=== PATIENT | female | born 1935 | race Caucasian/White ===

== ENCOUNTER 2018-09-27 20:30 | Inpatient (IN) | payer OTHER ==
[~2018-09-27] VITALS: Ht 172.7 cm; Wt 99.8 kg
[~2018-09-27 20:30] MED LIST: ASPI-1093 PO; CARV3.12 PO; CYAN1TAB9 PO; DILT60TA55 PO; DOCU-299 PO; FURO-572 PO; GABA300C PO; INSU100S45 SUBQ; LANS30EC3 PO; LANTUS SUBQ; MAGN400T11 PO; MULT-877 PO; OMEG10006 PO; SIMV40TA1 PO; SPIR25TA PO; TAP5 PO; VENL150C1 PO; [UNRECOGNIZED DRUG - CODE] PO
[2018-09-27 20:35] VITALS: BP 92/44
[2018-09-27] MEDS ORDERED: ZIPRASIDONE MESYLATE 20 MG/ML VIAL IM ONE (20:40)
--- NOTE | 2018-09-27 20:44 | NUR ---
PATIENT BIB AMBULANCE TO ED WITH ALOC. PT AAOX0, NON-COOPERATIVE, AND COMBATIVE; SKIN IS PINK/WARM/DRY; PT DOES NOT PRESENT WITH FEVER,SOB,OR COUGH AT THIS TIME; VSS; PATIENT IS IN RESTRAINTS; BEDRAILS UP X2; BED DOWN. ER MD MADE AWARE OF PT STATUS. CONTINUE TO MONITOR
[2018-09-27] MEDS ORDERED: WATER STERILE 10 ML MC ONE (20:52)
--- NOTE | 2018-09-27 20:52 | NUR ---
MEDICATION GIVEN, RESTRAINTS REMOVED.
[2018-09-27] MEDS ORDERED: LEVOFLOXACIN 500 MG/D5W PREMIX 100 ML IV ONE (21:10)
[2018-09-27] MEDS ORDERED: NACL 0.9% 1,000 ML IV ONE (21:10)
[2018-09-27 21:38] LABS: BASOPHILS % (AUTO) 0.6 % (0.0-2.0); EOSINOPHILS # (AUTO) 0.5 K/uL (0-0.4); EOSINOPHILS % (AUTO) 6.5 % (0.0-4.0); HEMATOCRIT 37.8 % (36-48); HEMOGLOBIN 12.5 g/dL (12.0-16.0); LYMPHOCYTES # (AUTO) 1.5 K/uL (2.5-16.5); LYMPHOCYTES % (AUTO) 20.7 % (20.5-51.1); MEAN CORPUSCULAR HEMOGLOBIN 30 pg (27-31); MEAN CORPUSCULAR HGB CONC 33 g/dL (33-37); MEAN CORPUSCULAR VOLUME 89.1 fL (80-94); MONOCYTES # (AUTO) 0.7 K/uL (0.8-1.0); MONOCYTES % (AUTO) 9.1 % (1.7-9.3); NEUTROPHILS # (AUTO) 4.7 K/uL (1.8-7.7); NEUTROPHILS % (AUTO) 63.1 % (42.2-75.2); PLATELET COUNT (AUTO) 173 K/uL (140-450); RED BLOOD CELL COUNT(AUTO) 4.25 MIL/uL (4.20-5.40); RED CELL DISTRIBUTION WIDTH 13.4 % (11.6-13.7); WHITE BLOOD COUNT (AUTO) 7.4 K/uL (4.8-10.8)
[2018-09-27 21:58] LABS: APPEARANCE,URINE CLOUDY (CLEAR); BILIRUBIN,URINE NEGATIVE (NEGATIVE); BLOOD, URINE TRACE-I (NEGATIVE); COLOR,URINE YELLOW (YELLOW); LEUKOCYTE ESTERASE ,URINE 4+ (NEGATIVE); NITRITE, URINE POSITIVE (NEGATIVE); PH,URINE 7.5 (5.0-9.0); UGLUCOSE NEGATIVE (NEGATIVE)
[2018-09-27 22:01] LABS: RBC,URINE NONE SEEN /HPF (0-5); WBC,URINE 80-100 /HPF (0-5)
[2018-09-27] MEDS ORDERED: HALOPERIDOL IM 5 MG/ML VIAL IM ONE (22:05)
[2018-09-27 22:06] LABS: PROTHROMBIN TIME 10.4 secs (10.8-13.4)
[2018-09-27 22:07] LABS: ALBUMIN 3.2 g/dL (3.4-5.0); ASPARTATE AMINOTRANSFERASE 17 U/L (15-37); CARBON DIOXIDE 28.9 mmol/L (21-32); CHLORIDE 101 mmol/L (98-107); CREATININE 1.3 mg/dL (0.6-1.3); GLUCOSE 153 mg/dL (74-106); POTASSIUM 3.9 mmol/L (3.5-5.1); SODIUM SERUM 138 mmol/L (136-145); TOTAL BILIRUBIN 0.6 mg/dL (0.0-1.0); UREA NITROGEN, BLOOD 26 mg/dL (7-18)
[2018-09-27] MEDS ORDERED: LOSA50TA1 PO (22:59)
[2018-09-27] MEDS ORDERED: CRAN450C PO (22:59)
[2018-09-27] MEDS ORDERED: MONT10TA35 PO (22:59)
[2018-09-27] MEDS ORDERED: ACET-5629 PO (22:59)
[2018-09-27] MEDS ORDERED: QUET25TA PO (22:59)
[2018-09-27] MEDS ORDERED: PANT40EC PO (22:59)
[2018-09-27] MEDS ORDERED: DIVA125E1 (22:59)
[2018-09-27] MEDS ORDERED: ATRN INH (22:59)
--- NOTE | 2018-09-27 23:11 | NUR ---
EKG PERFORMED AT BEDSIDE. PT COVERED IN GOWN DURING PROCEDURE
--- NOTE | 2018-09-28 00:11 | NUR ---
Patient will be admitted to care of DR YAN. Admited to TELE. Will go to room 110A. Belongings list completed. Report to ASA HELMS.
[2018-09-28 00:45] VITALS: BP 103/79
--- NOTE | 2018-09-28 01:10 | NUR ---
DR. OLIVAREZ CALLED TO GIVE ORDERS OVER PHONE. REPEATED ORDERS AND DR OLIVAREZ SAID "OK I WILL ADD THE REST TOMORROW IF YOU NEED SOMETHING ELSE GO AHEAD AND CALL ME." TOLD DR OLIVAREZ ABOUT POLST-PT DNR, AND HE SAID TO PUT IN CODE DNR. PUT IN ALL THE ORDERS HE GAVE IN THE SYSTEM.
[2018-09-28] MEDS: NACL 0.45% 1,000 ML IV SCH ×3 (02:00→15:56)
--- NOTE | 2018-09-28 02:00 | NUR ---
PT REFUSED TO BE CONNECTED TO IVF.
--- NOTE | 2018-09-28 04:00 | NUR ---
PT REFUSES TO LET ME CHECK HER VITAL SIGNS, PT STATES NO ONE WILL TOUCH HER. NO SIGNS OF DISTRESS NOTED. BED RAILS UP X2, BED IN LOWEST POSITION. CALL LIGHT WITHIN REACH. WILL CONTINUE TO MONITOR.
--- NOTE | 2018-09-28 06:13 | NUR ---
PT REFUSES TO CHECK BLOOD SUGAR. EDUCATED HER ABOUT THE IMPORTANCE OF CHECKING BLOOD SUGAR AND PT STARTED YELLING "I TOLD YOU! DON'T TOUCH ME! I'M NOT LETTING ANYONE TOUCH ME! DON'T YOU DARE TOUCH ME."
--- NOTE | 2018-09-28 07:15 | NUR ---
RECEIVED PT REPORT AT BEDSIDE FROM NIGHT NURSE. PT IS ASLEEP AT THIS TIME. NO S/S OF ACUTE DISTRESS, NO SOB NOTED. PT IS ON ROOM AIR. IV SITE NOTED ON R HAND, 22 GAUGE. SKIN APPEARS INTACT. CALL LIGHT WITHIN REACH, BED LOW. CONTACT PRECAUTIONS IN PLACE FOR ESBL URINE. WILL CONTINUE TO MONITOR.
[2018-09-28] MEDS: BLOOD GLUCOSE MONITORING 1 DEV DEV FS SCH ×4 (07:30→21:00)
--- NOTE | 2018-09-28 07:30 | NUR ---
ENDORSED PT TO DAY SHIFT RN FRANKIE FOR CONTINUITY OF CARE. PT IN STABLE CONDITION.
--- NOTE | 2018-09-28 07:55 | NUR ---
PT IS REFUSING TO HAVE VITAL SIGNS TAKEN OR TO BE CONNECTED TO HER IV FLUID. TRIED CONVINCING HER TO TAKE VITAL SIGNS TWICE, SHE REFUSED BOTH TIMES. SHE TOOK THE BLOOD PRESSURE CUFF THAT WAS NEXT TO HER, AND USED IT TO HIT THE RN. PT IS COMBATIVE AND NON-COMPLIANT WITH ASSESSMENT AND CARE. BED IS IN LOW POSITION, CALL LIGHT WITHIN REACH. WILL CONTINUE TO MONITOR.
--- NOTE | 2018-09-28 08:00 | NUR ---
PT REFUSED BLOOD SUGAR CHECK. PT IS AWARE THAT SHE IS DIABETIC AND NEEDS A BLOOD SUGAR CHECK, BUT STILL REFUSED.
--- NOTE | 2018-09-28 08:41 | NUR ---
PATIENT HAS BEEN SCREENED AND CATEGORIZED MODERATE NUTRITION RISK. PATIENT WILL BE SEEN WITHIN 3-5 DAYS OF ADMISSION. 09/30/18 10/02/[address]
[2018-09-28] MEDS: DOCUSATE SODIUM 100 MG GELCAP PO SCH ×2 (09:00→15:54)
[2018-09-28] MEDS: SPIRONOLACTONE 25 MG TAB PO SCH ×2 (09:00→15:54)
[2018-09-28] MEDS: QUEtiapine FUMARATE 25 MG TAB PO SCH ×2 (09:00→15:55)
[2018-09-28] MEDS: CARVEDILOL 3.125 MG TAB PO SCH ×2 (09:00→15:53)
[2018-09-28] MEDS: MONTELUKAST SODIUM 10 MG TAB PO SCH ×2 (09:00→15:55)
[2018-09-28] MEDS: LOSARTAN 50 MG TAB PO SCH (09:00)
[2018-09-28] MEDS: DILTIAZEM 60 MG TAB PO SCH ×2 (09:00→17:00)
[2018-09-28] MEDS: ECOTRIN 81 MG TABEC PO SCH ×2 (09:00→15:54)
[2018-09-28] MEDS: DIVALPROEX SPRINKLES 125 MG CAPDR PO SCH ×3 (09:00→15:52)
--- NOTE | 2018-09-28 09:30 | NUR ---
PT IS REFUSING HER SCHEDULED AM MEDICATIONS. STATES: "DON'T ASK ME AGAIN, IT WILL BE YOUR FAULT." SHE ALSO KEEPS REFUSING VITAL SIGNS AND BLOOD SUGAR CHECK. PT HAS NOT EATEN HER BREAKFAST. CALL LIGHT WITHIN REACH, WILL CONTINUE TO MONITOR.
--- NOTE | 2018-09-28 11:07 | NUR ---
PT IS VERBALLY INAPPROPRIATE, YELLING OUT, TELLING RN TO "GET OUT OF HERE". REFUSING A BLOOD SUGAR CHECK. WILL CONTINUE TO MONITOR.
--- NOTE | 2018-09-28 12:02 | NUR ---
PT REFUSES SCHEDULED 12:00 VITAL SIGN CHECK. TELLS THE RN TO "GET OUT". PT CONTINUES TO BE COMBATIVE AND NON-COMPLIANT WITH CARE. MD IS AWARE.
[2018-09-28] MEDS: GABAPENTIN 300 MG CAP PO SCH ×2 (13:00→15:53)
--- NOTE | 2018-09-28 13:20 | NUR ---
PT REFUSED HER SCHEDULED 13:00 DEPAKOTE AND NEURONTIN. STATES SHE'S "NEVER TAKEN THESE DRUGS", AND DOESN'T WANT TO TAKE THEM. SHE ALSO AGAIN REFUSED A VITAL SIGN CHECK AND A BLOOD SUGAR CHECK, STATES "I DON'T WANT ANYONE TO TOUCH ME." PT NOT C/O PAIN, NO SOB. OFFERED TO SIT PT UP AND HELP HER EAT LUNCH, SHE REFUSED, STATES THAT SHE "DOESN'T FEEL SAFE SITTING UP". PT CONTINUES TO VERBALLY INSULT STAFF. MD IS AWARE OF PT'S NON-COMPLIANCE WITH CARE.
[2018-09-28] MEDS ORDERED: ACETAMINOPHEN 650 MG/20.3 ML UDC PO PRN (14:55)
--- NOTE | 2018-09-28 15:00 | NUR ---
PT CLEANED AND SHEETS CHANGED. PT C/O BACK PAIN 08/10 WHILE BEING CHANGED. MD AWARE.
[2018-09-28] MEDS: HYDROcodone/APAP 5/325 MG 1 TAB TAB PO PRN ×2 (15:22→21:41)
--- NOTE | 2018-09-28 15:24 | NUR ---
PT ALLOWED RN TO TAKE VITAL SIGNS AT THIS TIME. VITAL SIGNS STABLE. BP 108/70, HR 65, O2 98 RA, TEMP 97.8, RESP 18. PT ON ROOM AIR.
[2018-09-28 16:00] VITALS: BP 108/70
--- NOTE | 2018-09-28 16:00 | NUR ---
PT AGREED TO TAKE THE SCHEDULED MEDICATIONS SHE REFUSED IN THE MORNING. SHE ALSO ALLOWED RN TO CHECK VITAL SIGNS AND BLOOD GLUCOSE. VS STABLE: BP 108/70, HR 65, TEMP 97.8, O2 98 ON ROOM AIR, RR 18. BLOOD GLUCOSE 105.
--- NOTE | 2018-09-28 17:02 | NUR ---
PT HAD A FEW SECONDS OF V.TACH ON TELEMETRY. DR ROSALES IS AWARE, AND SAID OK TO GIVE THE SCHEDULED ORAL CARDIZEM THAT THE PT REFUSED THIS MORNING. PT TOOK THE MEDICATION. WILL CONTINUE TO MONITOR PT.
--- NOTE | 2018-09-28 19:20 | NUR ---
PT REPORT GIVEN AT BEDSIDE TO NIGHT NURSE. PT ENDORSED IN STABLE CONDITION.
--- NOTE | 2018-09-28 19:21 | NUR ---
RECEIVED BEDSIDE REPORT FROM DAY SHIFT NURSE FRANKIE RN, PT STABLE, NO DISTRESS NOTED, IV TO R HAND 22G PATENT, INTACT, INFUSING 1/2 NS @ 80ML/HR, INFUSING WELL, PT ON ROOM AIR, NO SOB, INITIAL ASSESSMENT DONE, ALL SAFETY PRECAUTION MET, CALL LIGHT WITHIN REACH, WILL CONTINUE TO MONITOR.
--- NOTE | 2018-09-28 20:00 | NUR ---
PT REFUSED V/S CHECK, PT STATED TO NOT TOUCH HER, NO DISTRESS NOTED, CALL LIGHT WITHIN REACH, WILL CONTINUE TO MONITOR.
--- NOTE | 2018-09-28 21:10 | NUR ---
PT REFUSED BLOOD SUGAR CHECK, STATED TO NOT TOUCH HER, PT RESTING ON BED, NO DISTRESS NOTED, CALL LIGHT WITHIN REACH, WILL CONTINUE TO MONITOR
[2018-09-28] MEDS: LEVOFLOXACIN 250 MG/D5 PREMIX 50 ML IV SCH (21:23)
--- NOTE | 2018-09-28 21:41 | NUR ---
PT STATED HAVING PAIN, PAIN MEDICATION PER MD ORDER ADMINISTERED, PT TOLERATED WELL, NO DISTRESS NOTED, CALL LIGHT WITHIN REACH, WILL CONTINUE TO MONITOR.
--- NOTE | 2018-09-28 22:38 | NUR ---
CHANGED AND REPOSITIONED PT, PT DID A LARGE BM, BROWN, SOFT, PT THEN STATED TO NURSE, "GET THE FUCK OUT!" PT RESTING, NO DISTRESS NOTED, CALL LIGHT WITHIN REACH, WILL CONTINUE TO MONITOR.
[2018-09-29] VITALS: BP 125/60
--- NOTE | 2018-09-29 00:02 | NUR ---
CHECKED ON PT, PT SLEEPING, NO DISTRESS NOTED, V/S TAKEN, WNL, CALL LIGHT WITHIN REACH, WILL CONTINUE TO MONITOR.
--- NOTE | 2018-09-29 04:00 | NUR ---
PT REFUSED V/S CHECKS, STATED TO NOT COME NEAR HER AND DON'T TOUCH HER. PT RESTING, NO DISTRESS NOTED, CALL LIGHT WITHIN REACH, WILL CONTINUE TO MONITOR.
[2018-09-29] MEDS: GABAPENTIN 300 MG CAP PO SCH ×3 (05:00→19:59)
--- NOTE | 2018-09-29 05:02 | NUR ---
PT REFUSED MEDICATION PT STATED TO NOT COME NEAR HER. PT RESTING, NO DISTRESS NOTED, CALL LIGHT WITHIN REACH, WILL CONTINUE TO MONITOR.
[2018-09-29] MEDS: BLOOD GLUCOSE MONITORING 1 DEV DEV FS SCH ×4 (05:31→19:51)
[2018-09-29] MEDS: HYDROcodone/APAP 5/325 MG 1 TAB TAB PO PRN ×4 (05:31→19:59)
--- NOTE | 2018-09-29 05:31 | NUR ---
PT STATED HAVING PAIN, NO DISTRESS NOTED, PAIN MEDICATION ORDERED ADMINISTERED, PT TOLERATED WELL, NO DISTRESS NOTED, CALL LIGHT WITHIN REACH, WILL CONTINUE TO MONITOR.
[2018-09-29] MEDS: NACL 0.45% 1,000 ML IV SCH (05:33)
--- NOTE | 2018-09-29 07:15 | NUR ---
RECEIVED BEDSIDE REPORT FROM RELEASE AND TECHNICAL RECORDS CLERK NURSE RN, PT LAYING ON HER BACK, WITH EYES STARING, NO S/S OF RESPIRATORY DISTRESS NOTED, IV TO R HAND 22G PATENT, INTACT, INFUSING 1/2 NS @ 80ML/HR, INFUSING WELL, PT ON ROOM AIR, NO SOB, INITIAL ASSESSMENT DONE, ALL SAFETY PRECAUTION MET, CALL LIGHT WITHIN REACH, WILL CONTINUE TO MONITOR.
--- NOTE | 2018-09-29 07:18 | NUR ---
ENDORSED PT TO DAY SHIFT NURSE KELLY RN, PT STABLE, NO DISTRESS NOTED, CALL LIGHT WITHIN REACH.
[2018-09-29 07:45] LABS: BASOPHILS % (AUTO) 0.6 % (0.0-2.0); EOSINOPHILS # (AUTO) 0.3 K/uL (0-0.4); EOSINOPHILS % (AUTO) 4.1 % (0.0-4.0); HEMATOCRIT 39.8 % (36-48); HEMOGLOBIN 13.1 g/dL (12.0-16.0); LYMPHOCYTES # (AUTO) 1.4 K/uL (2.5-16.5); LYMPHOCYTES % (AUTO) 17.6 % (20.5-51.1); MEAN CORPUSCULAR HEMOGLOBIN 30 pg (27-31); MEAN CORPUSCULAR HGB CONC 33 g/dL (33-37); MEAN CORPUSCULAR VOLUME 89.9 fL (80-94); MONOCYTES # (AUTO) 0.7 K/uL (0.8-1.0); MONOCYTES % (AUTO) 9.2 % (1.7-9.3); NEUTROPHILS # (AUTO) 5.5 K/uL (1.8-7.7); NEUTROPHILS % (AUTO) 68.5 % (42.2-75.2); PLATELET COUNT (AUTO) 165 K/uL (140-450); RED BLOOD CELL COUNT(AUTO) 4.43 MIL/uL (4.20-5.40); RED CELL DISTRIBUTION WIDTH 13.7 % (11.6-13.7)
[2018-09-29 07:47] LABS: ANION GAP 16.1 (8-16); ASPARTATE AMINOTRANSFERASE 23 U/L (15-37); CARBON DIOXIDE 22.8 mmol/L (21-32); CHLORIDE 102 mmol/L (98-107); GLUCOSE 99 mg/dL (74-106); POTASSIUM 3.9 mmol/L (3.5-5.1); SODIUM SERUM 137 mmol/L (136-145); TOTAL BILIRUBIN 0.8 mg/dL (0.0-1.0); UREA NITROGEN, BLOOD 20 mg/dL (7-18)
--- NOTE | 2018-09-29 07:55 | NUR ---
PT REFUSED TO HAVE SCD ON. EXPLAINED THE USE OF SCD. PT STILL REFUSING.
[2018-09-29 08:00] VITALS: BP 145/76
[2018-09-29] MEDS: SPIRONOLACTONE 25 MG TAB PO SCH (08:40)
[2018-09-29] MEDS: CARVEDILOL 3.125 MG TAB PO SCH ×2 (08:41→19:59)
[2018-09-29] MEDS: DILTIAZEM 60 MG TAB PO SCH (08:41)
[2018-09-29] MEDS: ECOTRIN 81 MG TABEC PO SCH (08:41)
[2018-09-29] MEDS: LOSARTAN 50 MG TAB PO SCH (08:41)
[2018-09-29] MEDS: DOCUSATE SODIUM 100 MG GELCAP PO SCH (08:41)
--- NOTE | 2018-09-29 08:41 | NUR ---
PT REFUSED SCHEDULED MEDICATIONS. EXPLAINED TO HER THE USE OF EACH MEDICATION ORDERED BY HER DOCTOR. PT STILL REFUSING AND SAYING SHE HAS NEVER HEARD OF THOSE MEDICATIONS. PT STATED SHE HAS THE RIGHT TO REFUSE. PT GETS AGITATED, SHOUTED GET AWAY. PT RESTING, NO DISTRESS NOTED, CALL LIGHT WITHIN REACH, WILL CONTINUE TO MONITOR.
[2018-09-29] MEDS: DIVALPROEX SPRINKLES 125 MG CAPDR PO SCH ×4 (08:42→17:00)
[2018-09-29] MEDS: MONTELUKAST SODIUM 10 MG TAB PO SCH (08:42)
[2018-09-29] MEDS: QUEtiapine FUMARATE 25 MG TAB PO SCH ×4 (08:42→17:00)
--- NOTE | 2018-09-29 10:30 | NUR ---
PT WAS CLEANED, BED LINENS CHANGED. URINEX1, BMX1. PT WAS NOT COOPERATIVE DURING THE PROCESS, USING FOUL LANGUAGES.
--- NOTE | 2018-09-29 12:35 | NUR ---
PT STILL REFUSING MEDICATIONS, ASKED MAGALY RN TO TRY, BUT STILL NO SUCCESS. PT IS AGITATED, TALKING GIBBERISH.
[2018-09-29] MEDS: HALOPERIDOL IM 5 MG/ML VIAL IM PRN ×2 (12:39→19:03)
--- NOTE | 2018-09-29 13:05 | NUR ---
SPOKE WITH LETICIA COOPER TO GIVE HALDOL IF PT NOT TAKING SEROQUEL AND CONTINUE TO BE AGITATED.
--- NOTE | 2018-09-29 13:28 | NUR ---
[employer] VIOLENCE RIR REPORT FILED. Unique Id: [id number]
--- NOTE | 2018-09-29 16:05 | NUR ---
PT PULLED OUT IV CATH. TIP INTACT, BLEEDING STOPPED.
--- NOTE | 2018-09-29 16:16 | NUR ---
PT REFUSED GLUCOSE CHECK AND VITALS. EXPLAINED TO PT THAT WHAT DR OLIVAREZ ORDERED. PT STILL SAID NO, STATING I WASN'T BORN YESTERDAY, I AM NOT DUMB.
--- NOTE | 2018-09-29 17:25 | NUR ---
PT WAS CLEANED, BED LINENS CHANGED. URINEX1, BMX1. PT WAS NOT COOPERATIVE DURING THE PROCESS, TRYING TO HIT THE CNAS.
--- NOTE | 2018-09-29 19:15 | NUR ---
ENDORSED PT TO STEAM TURBINE OPERATOR NURSE, PT IN STABLE CONDITION, NO DISTRESS NOTED.
--- NOTE | 2018-09-29 19:16 | NUR ---
RECEIVED REPORT FROM DAY SHIFT NURSE KELLY-RN AT BEDSIDE. PT AOX3-CONFUSED, AGITATED AND NON-COMPLIANT ACCORDING TO DAY SHIFT NURSE. PT RESTING IN BED. DISCUSSED PLAN OF CARE AND PT VERBALIZED UNDERSTANDING. NO S/S OF RESPIRATORY DISTRESS OR DISCOMFORT NOTED AT THIS TIME. BED IN LOWEST POSITION, BED BREAKS ON, BOTH SIDE RAILS UP AND BED ALARM ON. FALL PRECAUTIONS IN PLACE. BEDSIDE TABLE AND CALL LIGHT ARE WITHIN REACH. WILL CONTINUE TO MONITOR.
[2018-09-29 20:00] VITALS: BP 144/66
--- NOTE | 2018-09-29 20:00 | NUR ---
VITAL SIGNS TAKEN AND TOLERATED WELL. BLOOD GLUCOSE 185- WILL ADMINISTER INSULIN COVERAGE. NO S/S OF RESPIRATORY DISTRESS OR DISCOMFORT NOTED AT THIS TIME. WILL CONTINUE TO MONITOR.
[2018-09-29] MEDS: INSULIN LISPRO SLIDING SCALE 100 UNITS/ML VIAL SUBQ PRN (20:05)
--- NOTE | 2018-09-29 20:05 | NUR ---
SCHEDULED MEDICATION GIVEN AND TOLERATED WELL. PT C/O PAIN 6/10 ON RIGHT HIP- NORCO GIVEN AND TOLERATED WELL. INSULIN COVERAGE GIVEN AND TOLERATED WELL. NO S/S OF RESPIRATORY DISTRESS OR DISCOMFORT NOTED AT THIS TIME. WILL CONTINUE TO MONITOR.
--- NOTE | 2018-09-29 21:00 | NUR ---
EAN WASHINGTON ASSISTED WITH PERINEAL CARE AFTER PT HAD A SMALL BOWEL MOVEMENT. NO S/S OF RESPIRATORY DISTRESS OR DISCOMFORT NOTED AT THIS TIME. WILL CONTINUE TO MONITOR.
[2018-09-29] MEDS: LEVOFLOXACIN 250 MG/D5 PREMIX 50 ML IV SCH (21:34)
--- NOTE | 2018-09-29 21:34 | NUR ---
NEW IV SITE STARTED BY ER NURSE ON RIGHT AC #22G. PT TOLERATED WELL. SCHEDULED MEDICATION GIVEN AND TOLERATED WELL. NO S/S OF RESPIRATORY DISTRESS OR DISCOMFORT NOTED AT THIS TIME. WILL CONTINUE TO MONITOR.
--- NOTE | 2018-09-29 23:00 | NUR ---
PT RESTING IN BED. NO S/S OF RESPIRATORY DISTRESS OR DISCOMFORT NOTED AT THIS TIME. WILL CONTINUE TO MONITOR.
[2018-09-30] VITALS: BP 124/62
--- NOTE | 2018-09-30 | NUR ---
VITAL SIGNS TAKEN AND TOLERATED WELL. NO S/S OF RESPIRATORY DISTRESS OR DISCOMFORT NOTED AT THIS TIME. WILL CONTINUE TO MONITOR.
--- NOTE | 2018-09-30 02:00 | NUR ---
PT RESTING IN BED. NO S/S OF RESPIRATORY DISTRESS OR DISCOMFORT NOTED AT THIS TIME. WILL CONTINUE TO MONITOR.
[2018-09-30] MEDS: NACL 0.45% 1,000 ML IV SCH ×2 (03:05→15:35)
[2018-09-30 04:00] VITALS: BP 145/58
--- NOTE | 2018-09-30 04:00 | NUR ---
VITAL SIGNS TAKEN AND TOLERATED WELL. PT C/O PAIN 08/10- WILL MEDICATE. NO S/S OF RESPIRATORY DISTRESS OR DISCOMFORT NOTED AT THIS TIME. WILL CONTINUE TO MONITOR.
[2018-09-30] MEDS: GABAPENTIN 300 MG CAP PO SCH ×3 (04:22→21:51)
[2018-09-30] MEDS: MORPHINE SULFATE 2 MG/ML SYR IVP PRN (04:22)
--- NOTE | 2018-09-30 04:22 | NUR ---
SCHEDULED MEDICATION GIVEN AND TOLERATED WELL. PT C/O PAIN 08/10 AND MEDICATED WITH MORPHINE. PT TOLERATED WELL. NO S/S OF RESPIRATORY DISTRESS OR DISCOMFORT NOTED AT THIS TIME. WILL CONTINUE TO MONITOR.
--- NOTE | 2018-09-30 06:00 | NUR ---
BLOOD GLUCOSE 171- WILL ADMINISTER INSULIN COVERAGE.
[2018-09-30] MEDS: BLOOD GLUCOSE MONITORING 1 DEV DEV FS SCH ×4 (06:03→21:25)
[2018-09-30] MEDS: INSULIN LISPRO SLIDING SCALE 100 UNITS/ML VIAL SUBQ PRN ×4 (06:21→21:48)
--- NOTE | 2018-09-30 06:21 | NUR ---
INSULIN COVERAGE GIVEN AND TOLERATED WELL. NO S/S OF RESPIRATORY DISTRESS OR DISCOMFORT NOTED AT THIS TIME. WILL CONTINUE TO MONITOR.
[2018-09-30 06:39] LABS: ANION GAP 17.9 (8-16); CARBON DIOXIDE 22.8 mmol/L (21-32); CHLORIDE 101 mmol/L (98-107); CREATININE 1.1 mg/dL (0.6-1.3); GLUCOSE 172 mg/dL (74-106); POTASSIUM 3.7 mmol/L (3.5-5.1); SODIUM SERUM 138 mmol/L (136-145)
[2018-09-30 06:42] LABS: BASOPHILS % (AUTO) 0.3 % (0.0-2.0); EOSINOPHILS # (AUTO) 0.2 K/uL (0-0.4); EOSINOPHILS % (AUTO) 1.8 % (0.0-4.0); HEMATOCRIT 42.5 % (36-48); LYMPHOCYTES % (AUTO) 10.8 % (20.5-51.1); MEAN CORPUSCULAR HEMOGLOBIN 30 pg (27-31); MEAN CORPUSCULAR HGB CONC 33 g/dL (33-37); MEAN CORPUSCULAR VOLUME 90.6 fL (80-94); MONOCYTES # (AUTO) 1.1 K/uL (0.8-1.0); MONOCYTES % (AUTO) 11.8 % (1.7-9.3); NEUTROPHILS # (AUTO) 7.2 K/uL (1.8-7.7); NEUTROPHILS % (AUTO) 75.3 % (42.2-75.2); PLATELET COUNT (AUTO) 171 K/uL (140-450); RED BLOOD CELL COUNT(AUTO) 4.68 MIL/uL (4.20-5.40); RED CELL DISTRIBUTION WIDTH 13.5 % (11.6-13.7); WHITE BLOOD COUNT (AUTO) 9.5 K/uL (4.8-10.8)
[2018-09-30 06:49] LABS: UREA NITROGEN, BLOOD 20 mg/dL (7-18)
[2018-09-30 06:56] LABS: MAGNESIUM 1.7 mg/dL (1.8-2.4); PHOSPHORUS 3.8 mg/dL (2.5-4.9)
--- NOTE | 2018-09-30 07:09 | NUR ---
ENDORSED PT CARE TO DAY SHIFT NURSE ADIEL FOR CONTINUITY OF CARE.
--- NOTE | 2018-09-30 07:10 | NUR ---
RECEIVED BEDSIDE REPORT FROM MELTER OPERATOR NURSE RN, PT LAYING ON HER BACK, WITH EYES STARING, NO S/S OF RESPIRATORY DISTRESS NOTED, IV TO R AC 22G PATENT, INTACT, AND ASYMPTOMATIC. PT ON ROOM AIR, NO SOB, INITIAL ASSESSMENT DONE, ALL SAFETY PRECAUTION MET, CALL LIGHT WITHIN REACH, WILL CONTINUE TO MONITOR.
--- NOTE | 2018-09-30 07:40 | NUR ---
PT IS COOPERATIVE AT THIS TIME. VITALS TAKEN. OFFERED PT BREAKFAST. PT REFUSED BUT OK WITH THE FRUIT CUP.
[2018-09-30] MEDS: QUEtiapine FUMARATE 25 MG TAB PO SCH ×3 (07:58→17:26)
[2018-09-30] MEDS: HYDROcodone/APAP 5/325 MG 1 TAB TAB PO PRN (07:58)
[2018-09-30 08:00] VITALS: BP 135/55
--- NOTE | 2018-09-30 08:00 | NUR ---
PT C/O ABD PAIN AFTER ATE THE FRUIT CUP. NORCO WAS GIVEN. MADE DR HOLLINGSWORTH AWARE.
[2018-09-30] MEDS: DOCUSATE SODIUM 100 MG GELCAP PO SCH (08:52)
[2018-09-30] MEDS: ECOTRIN 81 MG TABEC PO SCH (08:54)
[2018-09-30] MEDS: LOSARTAN 50 MG TAB PO SCH (08:54)
[2018-09-30] MEDS: CARVEDILOL 3.125 MG TAB PO SCH ×2 (08:54→21:00)
[2018-09-30] MEDS: SPIRONOLACTONE 25 MG TAB PO SCH (08:54)
[2018-09-30] MEDS: DILTIAZEM 60 MG TAB PO SCH (08:55)
[2018-09-30] MEDS: DIVALPROEX SPRINKLES 125 MG CAPDR PO SCH ×3 (08:55→17:26)
[2018-09-30] MEDS: MONTELUKAST SODIUM 10 MG TAB PO SCH (08:55)
[2018-09-30] MEDS ORDERED: MAGNESIUM OXIDE 400 MG TAB PO SCH (09:00)
--- NOTE | 2018-09-30 09:35 | NUR ---
PT WAS CLEANED, BED LINENS CHANGED. URINEX1, BMX1. PT WAS VERY COOPERATIVE DURING THE PROCESS.
--- NOTE | 2018-09-30 11:58 | NUR ---
BLOOD SUGAR CHECKED, VITALS DONE. PT WAS CLEANED, LINEN CHANGED. BM X1.
[2018-09-30 12:00] VITALS: BP 96/59
[2018-09-30] MEDS ORDERED: NACL 0.9% 500 ML IV ONE (12:35)
[2018-09-30] MEDS ORDERED: HYDRAGUARD CREAM TP SCH (12:36)
--- NOTE | 2018-09-30 12:57 | NUR ---
Product Development Assistant Note: I faxed patient's medical information to Kathe Aguilera, no discharge order at this time.
[2018-09-30] MEDS ORDERED: metroNIDAZOLE 500 MG/NS PREMIX 100 ML IV SCH (13:00)
[2018-09-30] MEDS ORDERED: MAGNESIUM CITRATE 300 ML BTL PO SCH (13:30)
--- NOTE | 2018-09-30 14:15 | NUR ---
IV RIGHT AC SITE APPEARS TO BE INFILTRATED. DC'D IV CATH, TIP INTACT, PRESSURE APPLIED. WARM CLOTH APPLIED. NEW IV PLACED ON LEFT UPPER ARM, 24G. CONTINUE WITH IVF NS BOLUS 500ML.
[2018-09-30 16:00] VITALS: BP 101/45
--- NOTE | 2018-09-30 16:45 | NUR ---
PT IS SLEEPING, ROUSED BY NAME. NO S/S OF ACUTE DISTRESS. INSULIN COVERAGE GIVEN.
--- NOTE | 2018-09-30 17:20 | NUR ---
PT HAS SISTER IN LAW VISITED, PT WAS COOPERATIVE. SCHEDULED MEDS WAS GIVEN.
[2018-09-30] MEDS: POLYETHYLENE GLYCOL 17 GM/PKT PO SCH ×2 (17:24→21:52)
[2018-09-30] MEDS: SENNA 8.6 MG TAB PO SCH (17:26)
--- NOTE | 2018-09-30 17:40 | NUR ---
PT HAD DINNER, CLEAR LIQ, 50% EATEN. PT TOLERATED WELL.
[2018-09-30] MEDS ORDERED: PIPER/TAZO 2.25GM/D5W PREMIX 50 ML IV SCH (18:00)
--- NOTE | 2018-09-30 18:00 | NUR ---
PT HAD BMX1. LOOSE STOOL WITH ONE HARD PEBBLE ABOUT 4 CM IN DIAMETER. PT WAS CLEANED, CHUX CHANGED. SKIN INTACT, HYDRAGUARD APPLIED.
--- NOTE | 2018-09-30 19:10 | NUR ---
ENDORSED PT TO CHECK GRADER GIOVANNA BRAY. PT IN STABLE CONDITION.
--- NOTE | 2018-09-30 19:11 | NUR ---
RECEIVED BEDSIDE REPORT FROM AM SHIFT NURSE, PT SUPINE SLEEPING. PT RESPONDS WHEN TO VOICE. NO S/S OF RESPIRATORY DISTRESS NOTED, IV TO L AC 24G PATENT, INTACT, AND ASYMPTOMATIC. PT ON ROOM AIR, NO SOB, INITIAL ASSESSMENT DONE, ALL SAFETY PRECAUTION MET, CALL LIGHT WITHIN REACH, WILL CONTINUE TO MONITOR. PT BP RECHECKED BP AT 102/42. WILL INFORM
--- NOTE | 2018-09-30 19:20 | NUR ---
BP 113/56, HR 76, RR18 MORPHINE GIVEN. Addendum: 09/30/18 at 1936 by Matthew Pereira RN PLEASE DISCARD, WRONG PT.
--- NOTE | 2018-09-30 19:30 | NUR ---
ENDORSED PT TO INTERLOCKING TOWER OPERATOR RN. PT IN STABLE CONDITION. CHATTING WITH ROOMMATE. Addendum: 09/30/18 at 1937 by Matthew Pereira RN PLEASE DISCARD, WRONG PT.
[2018-09-30 20:00] VITALS: BP 102/42
--- NOTE | 2018-09-30 21:00 | NUR ---
INFORMED VICENTE. CELESTE PT BP 1S 102/42. RECHECKED STILL PT BP 100/45. COREG HELD PTS BLOOD GLUCOSE HIGH AT 241 W/ HUMALOG ORDERED GIVEN. O2 SAT NORMAL AT 96%. PT SLEEPING BUT AROUSABLE. WILL CONTINUE TO MONITOR PT
[2018-09-30] MEDS: LACTULOSE 20 GM/30 ML UDC PO SCH (21:52)
[2018-09-30] MEDS ORDERED: MEROPENEM 500 MG in NACL 0.9% 50 ML IV SCH (22:25)
--- NOTE | 2018-09-30 22:50 | NUR ---
TELEPHONE ORDER BY DR. VAUGHAN HE SAID TO DISCONTINUE MERREM NOW 2200 INSTAED START 1ST DOSE TMRW OCT [address] 5:[address] DR. WONG AWARE.
[2018-10-01] VITALS: BP 104/42
--- NOTE | 2018-10-01 02:18 | NUR ---
PT CLEANED BY HOTEL MAINTENANCE TECHNICIAN'S WITH MINIMAL IMPACTED BOWEL MOVEMENT. RECTAL BOWEL MANUAL EVACUATION OFFERED TO PT, BUT PT. REFUSED. TRIED TO SLAP ME BUT WAS WEAK. WILL INFORM
[2018-10-01 04:00] VITALS: BP 118/42
--- NOTE | 2018-10-01 04:00 | NUR ---
BP LOW AT 118/[address] SOCORRO.PLACED ON [place] POSITION. PT IS DROWSY BUT AROUSABLE.WILL INFORM
--- NOTE | 2018-10-01 04:24 | NUR ---
INFORMED ON CONTINUED DROWSINESS OF PT BUT AROUSABLE TO VERBAL AND TACTILE STIMULI. PT WITH LITTLE INTAKE OF WATER SINCE VERY DROWSY. INFORMED. SEROQUEL DOSE ADJUSTED.
[2018-10-01] MEDS: NACL 0.45% 1,000 ML IV SCH ×2 (04:28→17:32)
[2018-10-01] MEDS: BLOOD GLUCOSE MONITORING 1 DEV DEV FS SCH ×4 (04:45→20:46)
[2018-10-01] MEDS: INSULIN LISPRO SLIDING SCALE 100 UNITS/ML VIAL SUBQ PRN ×4 (04:46→20:54)
[2018-10-01] MEDS: GABAPENTIN 300 MG CAP PO SCH ×3 (05:00→20:31)
[2018-10-01] MEDS ORDERED: MEROPENEM 500 MG in NACL 0.9% 50 ML IV SCH (05:00)
--- NOTE | 2018-10-01 05:00 | NUR ---
PT HAD LOOSE STOOL 1X, BUT WITH SOME FORMED FORMED CONTENTS.
--- NOTE | 2018-10-01 05:20 | NUR ---
PT REFUSED NEURONTIN. PT TOO DROWSY TO DRINK. DR. XIAO ADJUSTED DOSE OF SEROQUEL
[2018-10-01] MEDS ORDERED: MEROPENEM 1,000 MG VIAL IV ONE (05:24)
[2018-10-01] MEDS: MEROPENEM 500 MG in NACL 0.9% 50 ML IV SCH ×3 (05:37→20:47)
--- NOTE | 2018-10-01 05:37 | NUR ---
MERREM(MEROPENEM) 1 GRAM RECEIVED FROM MOTOR RACER. ONLY ADMINISTERED 1/2 OF THE DRUG ON HAND WHICH IS 500MG (1/2 OF 1 GRAM).
--- NOTE | 2018-10-01 07:40 | NUR ---
ENDORSED PT TO AM SHIFT NURSE. STILL SLEEPY BUT AROUSABLE TO VERBAL AND TACTILE STIMULI. PT IN STABLE CONDITION
[2018-10-01 08:00] VITALS: BP 122/45
[2018-10-01] MEDS ORDERED: NITROFURANTOIN 100 MG CAP PO SCH (08:00)
[2018-10-01] MEDS: SPIRONOLACTONE 25 MG TAB PO SCH (09:00)
[2018-10-01] MEDS: CARVEDILOL 3.125 MG TAB PO SCH ×2 (09:00→20:39)
[2018-10-01] MEDS ORDERED: POTASSIUM CHLORIDE 20% 40 MEQ/15 ML UDC GT SCH (09:00)
[2018-10-01] MEDS: BISACODYL 10 MG SUPP RC SCH (09:00)
[2018-10-01] MEDS: DILTIAZEM 60 MG TAB PO SCH (09:00)
[2018-10-01] MEDS: LOSARTAN 50 MG TAB PO SCH (09:00)
[2018-10-01] MEDS: POLYETHYLENE GLYCOL 17 GM/PKT PO SCH ×4 (09:37→20:30)
[2018-10-01] MEDS: POTASSIUM CHLORIDE 20% 40 MEQ/15 ML UDC PO SCH (09:37)
[2018-10-01] MEDS: SENNA 8.6 MG TAB PO SCH ×3 (09:38→17:27)
[2018-10-01] MEDS: LACTULOSE 20 GM/30 ML UDC PO SCH ×2 (09:38→20:30)
[2018-10-01] MEDS: LACTOBACILLUS RHAMNOSUS GG 1 EACH CAP PO SCH (09:38)
[2018-10-01] MEDS: MORPHINE SULFATE 2 MG/ML SYR IVP PRN (09:38)
[2018-10-01] MEDS: ECOTRIN 81 MG TABEC PO SCH (09:39)
[2018-10-01] MEDS: MONTELUKAST SODIUM 10 MG TAB PO SCH (09:39)
[2018-10-01] MEDS: DIVALPROEX SPRINKLES 125 MG CAPDR PO SCH ×3 (09:39→17:27)
[2018-10-01] MEDS: QUEtiapine FUMARATE 25 MG TAB PO SCH ×2 (09:39→20:31)
--- NOTE | 2018-10-01 09:52 | NUR ---
ADMINISTERED MEDS TO PT ORDERED. PT TOLERATED WELL. HOLD BP MEDS PT BP TRENDS TOWARDS LOWER END PER PM NURSE , BP 112/33 AT TIS TIME. HOLD DUCOLAX PT HAVING LOOSE DM , STATES NOT TO TAKE IT RT NOW. PLACED CALL LIGHT WITHIN PT REACH. NO SIGN OF DISTRESS NOTED. WILL CONTINUE TO MONITOR PT.
[2018-10-01 12:00] VITALS: BP 135/55
[2018-10-01] MEDS: HYDROcodone/APAP 5/325 MG 1 TAB TAB PO PRN ×2 (12:51→20:32)
[2018-10-01 16:00] VITALS: BP 120/68
[2018-10-01] MEDS ORDERED: SODIUM PHOSPHATE 118 ML ENEM RC PRN (16:25)
--- NOTE | 2018-10-01 18:00 | NUR ---
ADMINISTERED FLEET ENEMA TO PT ORDERED. PT HAD BM, MODERATE FORMED STOOL WITH LIQUID CAME OUT. CLEANED PT. NO SIGN OF DISTRESS NOTED WILL CONTINUE TO MONITOR PT.
[2018-10-01] MEDS ORDERED: MAGNESIUM CITRATE 300 ML BTL PO SCH (19:00)
--- NOTE | 2018-10-01 19:20 | NUR ---
ENDORSED PT TO PM NURSE AT BEDSIDE. PT IN STABLE CONDITION.
--- NOTE | 2018-10-01 19:20 | NUR ---
RECEIVED REPORT AT BEDSIDE FROM CRUZ RN DAYSHIFT NURSE AT BEDSIDE FOR CONTINUITY OF CARE, PT IN STABLE CONDITION.
[2018-10-01 20:00] VITALS: BP 104/61
--- NOTE | 2018-10-01 21:00 | NUR ---
PT IN BED AND HAD A LARGE BM, AND STOOL WAS HARD. PT WAS TURNED CHANGED AND REPOSITIONED. PT GIVEN ALL DUE MEDICATIONS OF MERREM IV ABT WELL LACTULOSE, MIRALAX, NUERONTIN AND SEROQUEL. PT C/O 5/10 PAIN IN ABDOMEN. PT GIVEN PRN NORCO FOR 5/10 PAIN IN ABDOMEN. BELLY NOTED DISTENDED WITH SOME FIRMNESS NOTED TO ABDOMEN. F/S WAS 280 6 UNITS COVERAGE OF HUMOLOG GIVEN IN LEFT DELTOID. LUNG SOUNDS CLEAR AND PT HAS POSITIVE. V/S FOLLOWS T 97.7 P 90 R 18 B/P 104/61 02 99% ON R/A. DR. COLLIER AT BEDSIDE FOR CONSULT.
--- NOTE | 2018-10-01 21:04 | NUR ---
COREG HELD DUE TO LOW B/P. POSITIVE FOR B/S ALL 4 QUADS AND LUNG SOUNDS CLEAR.
--- NOTE | 2018-10-01 22:30 | NUR ---
PT HAD ANOTHER LARGE AND FIRM STOOL. PT TURNED , CHANGED AND REPOSITIONED. PT STATED THAT SHE FEELS BETTER AFTER HAVING A 2ND LARGE BM.
[2018-10-02] VITALS: BP 117/40
--- NOTE | 2018-10-02 00:25 | NUR ---
PT IN BED SLEEPING SOUNDLY NO S/S OF PAIN OR DISTRESS NOTED. AL FALLS PRECAUTIONS IN PLACE,. V/S FOLLOWS T 99.1 P 83 R 18 B/P 117/40 02 99% ON R/A. CALL DEJESUS IN REACH. NO S/S OF PAIN OR DISTRESS NOTED. PT TURNED AND REPOSITIONED.
--- NOTE | 2018-10-02 02:30 | NUR ---
PT IN BED ASLEEP WITH ALL FALLS PRECAUTIONS IN PLACE.
[2018-10-02] MEDS: GABAPENTIN 300 MG CAP PO SCH ×3 (04:28→21:14)
[2018-10-02] MEDS: MEROPENEM 500 MG in NACL 0.9% 50 ML IV SCH ×3 (04:30→21:18)
[2018-10-02] MEDS: NACL 0.45% 1,000 ML IV SCH (04:44)
--- NOTE | 2018-10-02 04:47 | NUR ---
PT IN BED WITH ALL FALLS PRECAUTIONS IN PLACE. V/S FOLLOWS T 97.4 P 83 R 20 B/P 134/65 02 97% WITH R/A. PT GIVEN DUE MEDS OF NEURONTIN AND ABT IV MEROPENEM AT 100 MLS/HR. PRIMARY FLUIDS OF 1/2NS RUNNING AT 80MLS REPLACED IV SITE INTACT NO S/S OF INFILTRATION NOTED.
[2018-10-02 06:06] VITALS: BP 134/65
[2018-10-02] MEDS: BLOOD GLUCOSE MONITORING 1 DEV DEV FS SCH ×4 (06:14→21:13)
[2018-10-02] MEDS: INSULIN LISPRO SLIDING SCALE 100 UNITS/ML VIAL SUBQ PRN ×3 (06:16→18:04)
--- NOTE | 2018-10-02 06:30 | NUR ---
CONSENT OBTAINED FOR COLONOSCOPY. RISKS AND BENEFITS EXPLAINED. AM FINGER STICK IS 195 2 UNITS OF COVERAGE GIVEN.
[2018-10-02 07:05] LABS: BASOPHILS # (AUTO) 0.1 K/uL (0.00-0.22); BASOPHILS % (AUTO) 0.6 % (0.0-2.0); EOSINOPHILS # (AUTO) 0.3 K/uL (0-0.4); EOSINOPHILS % (AUTO) 3.2 % (0.0-4.0); HEMATOCRIT 33.7 % (36-48); HEMOGLOBIN 11.2 g/dL (12.0-16.0); LYMPHOCYTES # (AUTO) 1.4 K/uL (2.5-16.5); LYMPHOCYTES % (AUTO) 14.3 % (20.5-51.1); MEAN CORPUSCULAR HEMOGLOBIN 30 pg (27-31); MEAN CORPUSCULAR HGB CONC 33 g/dL (33-37); MEAN CORPUSCULAR VOLUME 90.3 fL (80-94); NEUTROPHILS # (AUTO) 7.1 K/uL (1.8-7.7); NEUTROPHILS % (AUTO) 71.9 % (42.2-75.2); PLATELET COUNT (AUTO) 139 K/uL (140-450); RED BLOOD CELL COUNT(AUTO) 3.73 MIL/uL (4.20-5.40); RED CELL DISTRIBUTION WIDTH 13.5 % (11.6-13.7); WHITE BLOOD COUNT (AUTO) 9.9 K/uL (4.8-10.8)
--- NOTE | 2018-10-02 07:15 | NUR ---
RECEIVED REPORT FROM PM NURSE AT BEDSIDE. PT LYING ON HER BED, SLEEPING AT THIS TIME. PER PER NURSE, PT HAD LARGE BM X4 LAST NIGHT. PT ABLE TO PASS THE HARD CLUMP IN DURING HER BM. CONSENT SIGNED OBTAINED BY PM NURSE. NO SIGN OF DISTRESS NOTED. UPDATED BOARD. PT IS ON CONTACT ISOLATION FOR ESBL IN URINE. FALL RISK INITIATED. WILL CONTINUE TO MONITOR PT.
[2018-10-02 08:29] LABS: ANION GAP 9.2 (8-16); CARBON DIOXIDE 27.2 mmol/L (21-32); CHLORIDE 104 mmol/L (98-107); GLUCOSE 204 mg/dL (74-106); POTASSIUM 4.4 mmol/L (3.5-5.1); SODIUM SERUM 136 mmol/L (136-145); UREA NITROGEN, BLOOD 13 mg/dL (7-18)
[2018-10-02 08:30] LABS: CREATININE 0.9 mg/dL (0.6-1.3)
[2018-10-02] MEDS: SENNA 8.6 MG TAB PO SCH ×3 (10:13→17:33)
[2018-10-02] MEDS: ECOTRIN 81 MG TABEC PO SCH (10:13)
[2018-10-02] MEDS: LACTOBACILLUS RHAMNOSUS GG 1 EACH CAP PO SCH (10:14)
[2018-10-02] MEDS: QUEtiapine FUMARATE 25 MG TAB PO SCH ×2 (10:14→21:14)
[2018-10-02] MEDS: LOSARTAN 50 MG TAB PO SCH (10:14)
[2018-10-02] MEDS: DILTIAZEM 60 MG TAB PO SCH (10:14)
[2018-10-02] MEDS: MONTELUKAST SODIUM 10 MG TAB PO SCH (10:15)
[2018-10-02] MEDS: CARVEDILOL 3.125 MG TAB PO SCH ×2 (10:15→21:14)
[2018-10-02] MEDS: SPIRONOLACTONE 25 MG TAB PO SCH (10:15)
[2018-10-02] MEDS: DIVALPROEX SPRINKLES 125 MG CAPDR PO SCH ×3 (10:16→17:33)
[2018-10-02] MEDS: POTASSIUM CHLORIDE 20% 40 MEQ/15 ML UDC PO SCH (10:16)
[2018-10-02] MEDS: LACTULOSE 20 GM/30 ML UDC PO SCH ×4 (10:16→21:13)
[2018-10-02] MEDS: POLYETHYLENE GLYCOL 17 GM/PKT PO SCH ×4 (10:16→21:13)
[2018-10-02] MEDS: BISACODYL 10 MG SUPP RC SCH (11:00)
--- NOTE | 2018-10-02 11:00 | NUR ---
ADMINISTERED DUCOLAX TO PT. DID THE MANUAL FECAL DEFEACATION , NO HARD MASS FOUND , PT HAVING LIQUID DIARRHEA, ABLE TO PASS KARSTEN. STOOL WAS MUCOID . CHANGED PT AND CLEANED HER WITH HELP OF FRIT MIXER AND BURNER AND STUDENT NURSE. PT TOLERATED PROCEDURE WELL. NO SIGN OF DISTRESS NOTED. WILL CONTINUE TO MONITOR PT.
[2018-10-02 12:00] VITALS: BP 134/45
--- NOTE | 2018-10-02 13:26 | NUR ---
ADMINISTERED MEDS TO PT ORDERED. PT SLEEPING COMFORTABLY IN HER BED. NO SIG OF DISTRESS NOTED. PT TOLERATED MEDS WELL. CALL LIGHT WITHIN REACH. WILL CONTINUE TO MONITOR PT.
[2018-10-02] MEDS ORDERED: MAGNESIUM CITRATE 300 ML BTL PO SCH (14:00)
--- NOTE | 2018-10-02 14:01 | NUR ---
10/02/18 RD INITIAL ASSESSMENT COMPLETED. PLEASE REFER TO NUTRITION ASSESSMENT UNDER CARE ACTIVITY FOR ESTIMATED NUTRITIONAL NEEDS. RD RECOMMENDATIONS: 1. RECOMMEND CONTINUE CLEAR LIQUID DIET. 2. WHEN MEDICALLY CLEARED TO ADVANCE DIET, RECOMMEND FULL LIQUID THEN 60G CCHO, 2G NA DIET TOLERATED. 3. ENCOURAGE INCREASED PO INTAKE; WHEN APPLICABLE RD WILL ASSESS NEED FOR HEALTHSHAKE SUPPLEMENTS (CAN NOT BE ADDED WITH CLEAR LIQUID DIET) 4. F/U 3-5 DAYS; MODERATE RISK JED BABB MBA, RD
--- NOTE | 2018-10-02 14:54 | NUR ---
CHECKED ON PT. LYING COMFORTABLY IN BED. GAVE MEDS TO PT ORDERED. TOLERATED WELL. NO DISTRESS NOTED. SAFETY MEASURE IN PLACE. WILL CONTINUE TO MONITOR PT.
[2018-10-02 16:00] VITALS: BP 118/58
--- NOTE | 2018-10-02 17:38 | NUR ---
ADMINISTERED MEDS TO PT ORDERED. PT IS AWAKE, ALERT. DENIES ANY PAIN. NO SIGN OF DISTRESS NOTED. PT INFORMED THAT SHE IS NPO FOR AM PROCEDURE COLONOSCOPY. VERBALIZED UNDERSTANDING. PT STATES OF BEETER COMFORTABLE THAN BEFORE. CALL LIGHT WITHIN PT REACH. WILL CONTINUE TO MONITOR PT.
[2018-10-02] MEDS ORDERED: BOWEL EVACUANT DRINK 4,000 ML PDS PO SCH (19:00)
--- NOTE | 2018-10-02 19:35 | NUR ---
enodrsed pt to pm nurse. pt in stable condition.
--- NOTE | 2018-10-02 19:36 | NUR ---
RECEIVED REPORT FROM DAY SHIFT RN SITAL FOR CONTINUITY OF CARE. PT IS A/OX2, ON ROOM AIR. PT IS ON BEDREST, AND SKIN IS PINK/WARM/DRY AND INTACT. PT IS ABLE TO MAKE NEEDS KNOWN, AND ABLE TO FOLLOW COMMANDS. LUNGS SOUNDS CLEAR, HR EVEN AND REGULAR. PT HAS 24G IV TO LEFT UPPER ARM, ASYMPTOMATIC AND INTACT. PT DENIES ANY PAIN AT THIS TIME. VITAL SIGNS STABLE. NO SIGNS OF DISTRESS NOTED. PT POSITIONED FOR COMFORT. BED RAILS UP X2, BED IN LOWEST POSITION. CALL LIGHT WITHIN REACH. WILL CONTINUE TO MONITOR.
[2018-10-02 20:00] VITALS: BP 142/59
--- NOTE | 2018-10-02 21:20 | NUR ---
ADMINISTERED SCHEDULED MEDICATIONS. NO INSULIN COVERAGE NEEDED FOR BLOOD SUGAR 146. PT VERBALIZED UNDERSTANDING OF ALL MEDS BEING GIVEN, AND TOLERATED ADMINISTRATION WELL.
--- NOTE | 2018-10-02 23:10 | NUR ---
BOTH MANAGER ROOFING'S HELPED ME CLEAN PT WHILE I TRIED TO GET VITAL SIGNS. PT REFUSED TO GET VITAL SIGNS CHECKED AND I WAS WALKING OUT, PT STARTED SAYING "YOU GUYS ARE ALL SO DUMB AND STUPID." I ASKED PT NOT TO TALK LIKE THAT TOWARDS US, PT STATED "WELL, YOU GUYS ARE STUPID, YOU CAN'T EVEN TELL ME WHAT IS THAT FIGURE STANDING THERE! YOU GUYS ARE DUMB AND I DON'T GIVE A FUCK WHAT YOU SAY." TRIED TO ORIENT PT TO REALITY EXPLAINING THERE IS NO FIGURE STANDING THERE IN THE ROOM, PT SAID TO LEAVE HER ALONE AND LEAVE THE LIGHT ON, WE DID SHE TOLD US.
[2018-10-03] MEDS: HALOPERIDOL IM 5 MG/ML VIAL IM PRN (00:57)
--- NOTE | 2018-10-03 00:57 | NUR ---
PT STILL REFUSING TO GET VITAL SIGNS CHECKED. ENCOURAGED PT TO KEEP DRINKING GOLYTELY AND PT SAID SHE IS NOT GOING TO BE TAKING ANYTHING ELSE BECAUSE SHE WANTS TO GO HOME. REMINDED PT THAT GOLYTELY WAS TO HELP PREP HER BOWEL FOR COLONOSCOPY IN THE MORNING AND IF ALL GOES WELL IT IS POSSIBLE DR MIGHT DECIDE TO DISCHARGE HER, PT SAID SHE WILL NOT BE GETTING THAT DONE. TRIED TO ADJUST TELE MONITOR BECAUSE SHE IS NOT SHOWING ON THE MONITOR ANYMORE AND PT SLAPPED MY HAND I TRIED TO GET TELE MONITOR. PT STARTED GETTING MORE AGITATED AND STARTED THROWING THINGS AT PEOPLE AND OUT OF HER ROOM. ADMINISTERED HALDOL.
[2018-10-03] MEDS ORDERED: LORazepam 2 MG/ML VIAL IVP ONE ×2 (01:15→04:05)
[2018-10-03] MEDS ORDERED: LORazepam 2 MG/ML VIAL ONE (01:23)
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
--- NOTE | 2018-10-03 02:07 | NUR ---
PT UNCOVERED HERSELF COMPLETELY. PT IS JUST LAYING IN BED COMPLETELY NAKED. PRODUCT DEVELOPMENT CARPENTER AND I TRIED TO COVER HER WITH NEW GOWN AND PT TOOK IT OFF AGAIN. WE TRIED TO COVER HER WITH BLANKET AND SHEET BECAUSE PT STATES SHE IS COLD BUT PT TOOK IT OFF AGAIN. TOLD PT TO KEEP IT ON SO SHE WOULD NOT BE COLD ANYMORE AND PT STATES " I DON'T WANT TO." WILL CONTINUE MONITORING PT CLOSELY.
[2018-10-03 04:00] VITALS: BP 117/68
--- NOTE | 2018-10-03 04:00 | NUR ---
PT PULLED OUT IV, NEW 22G IV STARTED TO LEFT FOREARM AND WRAPPED WITH KERLIX. PT NOW TRYING TO PULL OUT NEW IV AGAIN. PT TRIED TO REMOVE TAPE, SCRATCHED HERSELF ON HER FOREARM AND BLED. PT TRYING TO BITE AND SCRATCH ANYONE THAT GETS NEAR HER. PT IS ADAMANT ON REMOVING IV, SHE REMOVED KERLIX AND STARTED PULLING ON IV LINE. CALLED DR WONG AND ASKED FOR A RESTRAINT ORDER, SAID YES AND ALSO ORDERED ATIVAN AGAIN.
[2018-10-03] MEDS: NACL 0.45% 1,000 ML IV SCH (04:48)
[2018-10-03] MEDS: MEROPENEM 500 MG in NACL 0.9% 50 ML IV SCH ×3 (04:49→20:22)
[2018-10-03] MEDS: GABAPENTIN 300 MG CAP PO SCH ×4 (04:49→20:12)
--- NOTE | 2018-10-03 04:50 | NUR ---
ADMINISTERED SCHEDULED MEDICATIONS, PT TOLERATED WELL. Addendum: 10/03/18 at 0501 by Deneen Deshpande RN PT REFUSED GABAPENTIN.
[2018-10-03] MEDS: BLOOD GLUCOSE MONITORING 1 DEV DEV FS SCH ×4 (06:19→20:11)
--- NOTE | 2018-10-03 06:25 | NUR ---
PT REFUSED TO LET FLUMER DRAW BLOOD.
--- NOTE | 2018-10-03 07:10 | NUR ---
ENDORSED PT TO DAY SHIFT RN QUINTON FOR CONTINUITY OF CARE. PT IN STABLE CONDITION.
--- NOTE | 2018-10-03 07:15 | NUR ---
REPORT RECEIVED FROM POWER SHOVEL MECHANIC NURSE, PT SLEEPING QUIETLY IN NAD, RESP EVEN UNLABORED ON RA, SKIN WARM DRY COLOR WNL FOR RACE, AROUSES EASILY BY VOICE, PLAN OF CARE REVIEWED, PT OX2-3, PLACE AND PERSON AND SITUATION, PT PT UNABLE TO CONTRACT FOR SAFETY, REMAINS ON WRIST RESTRAINTS, DENIES ANY IMMEDIATE NEEDS, WILL CONTINUE TO MONITOR.
[2018-10-03 08:00] VITALS: BP 144/82
--- NOTE | 2018-10-03 08:00 | NUR ---
LEFT HAND IV REMOVED, LEFT HAND SWALLEN, UNABLE TO FLUSH IV, CATH TIP INTACT, BLEEDING CONTROLLED.
[2018-10-03] MEDS: QUEtiapine FUMARATE 25 MG TAB PO SCH ×3 (09:00→20:12)
[2018-10-03] MEDS: BISACODYL 10 MG SUPP RC SCH (09:00)
[2018-10-03] MEDS: POTASSIUM CHLORIDE 20% 40 MEQ/15 ML UDC PO SCH ×2 (09:00→10:22)
[2018-10-03] MEDS: MONTELUKAST SODIUM 10 MG TAB PO SCH ×2 (09:00→10:21)
[2018-10-03] MEDS: SENNA 8.6 MG TAB PO SCH ×4 (09:00→17:00)
[2018-10-03] MEDS: DILTIAZEM 60 MG TAB PO SCH ×2 (09:00→10:21)
[2018-10-03] MEDS: DIVALPROEX SPRINKLES 125 MG CAPDR PO SCH ×4 (09:00→17:00)
[2018-10-03] MEDS: LOSARTAN 50 MG TAB PO SCH ×2 (09:00→10:20)
[2018-10-03] MEDS: POLYETHYLENE GLYCOL 17 GM/PKT PO SCH ×5 (09:00→20:12)
[2018-10-03] MEDS: SPIRONOLACTONE 25 MG TAB PO SCH ×2 (09:00→10:20)
[2018-10-03] MEDS: CARVEDILOL 3.125 MG TAB PO SCH ×3 (09:00→20:12)
[2018-10-03] MEDS: LACTOBACILLUS RHAMNOSUS GG 1 EACH CAP PO SCH ×2 (09:00→10:22)
[2018-10-03] MEDS: LACTULOSE 20 GM/30 ML UDC PO SCH ×4 (09:00→20:11)
--- NOTE | 2018-10-03 10:08 | NUR ---
PT REFUSES ALL MEDICATIONS, PT VERBALLY AGGRESSIVE, REFUSES ANYONE TO TOUCH HER TO CHANGE HER DIAPER, PT SPITS, TRIES TO PUNCH WHEN WRIST RESTRAINT REMOVED FOR ASSESSMENT, DIAPER CHANGE DONE WITH 3 NURSES, HYDROGUARD APPLIED FOR JERRY REDNESS, RESTRAINTS RE-APPLIED, WILL CONTINUE TO MONTIOR.
--- NOTE | 2018-10-03 12:08 | NUR ---
NEW IV STARTED TO RIGHT FA 22G, PT MT FAIRLY, PT UNCOOPERATIVE, NEEDED 2 STAFF TO HOLD HER ARM, PT REFUSES SCHEDULED MEDS, DR PEDRAZA AWARE THAT PT IS NOT TAKING ANY PO MEDS.
--- NOTE | 2018-10-03 15:09 | NUR ---
CALLED [facility] AND SPOKE WITH ALBARO. FAXED MED SHEETS AND MICROS TO HER.
[2018-10-03 16:00] VITALS: BP 118/59
--- NOTE | 2018-10-03 16:00 | NUR ---
PT RESTING QUIETLY WITH EYES CLOSED, PT AROUSES SOON NURSE COME NEAR HER, REFUSES TO BE TOUCHED, ATTEMPTS TO SWING HER ARMS AT NURSES. WILL KEEP IN WRIST RESTRAINTS.
--- NOTE | 2018-10-03 16:05 | NUR ---
PERICARE DONE, WATERY STOOL WITH SOME BROWN SEDIMENTS, PT RESISTS GETTING CHANGED, UNCOOPERATIVE.
[2018-10-03] MEDS: INSULIN LISPRO SLIDING SCALE 100 UNITS/ML VIAL SUBQ PRN (17:44)
--- NOTE | 2018-10-03 17:50 | NUR ---
PT REFUSES TO TAKE ANY PO MEDS.
--- NOTE | 2018-10-03 19:22 | NUR ---
REPORT GIVEN TO VALET SERVICE ATTENDANT NURSE, PT IN STABLE CONDITION.
--- NOTE | 2018-10-03 19:22 | NUR ---
RECEIVED BEDSIDE REPORT FROM RN QUINTON, PATIENT ON RESTRAINTS, NOTED TO BE COMBATIVE, ON RA, IV IN RIGHT FA INFUSING 1/2 NS AT 20 ML/HR. REFUSED ACCU CHECK, ONLY ADMINISTERED SCHEDULED ANTIBIOTICS, CALL LIGHT WITHIN REACH, WILL CONTINUE TO MONITOR.
--- NOTE | 2018-10-03 20:00 | NUR ---
PATIENT CONTINUES TO BE COMBATIVE, WILL CONTINUE WITH RESTRAINTS.
--- NOTE | 2018-10-03 22:00 | NUR ---
PATIENT STATED "GET OUT OF MY ROOM" WHEN ATTEMPTING TO REMOVE RESTRAINTS, WILL CONTINUE TWITH SOFT WRIST RESTRAINTS, WILL CONTINUE TO MONITOR.
--- NOTE | 2018-10-03 23:54 | NUR ---
PATIENT REFUSED ALL V/S AND CONTINUES TO BE COMBATIVE, WILL CONTINUE WITH SOFT WRIST RESTRAINTS.
--- NOTE | 2018-10-04 02:00 | NUR ---
PATIENT CONTINUES TO BE COMBATIVE ONCE SOFT WRIST RESTRAINTS ARE REMOVED WILL CONTINUE WITH SOFT WRIST RESTRAINTS.
--- NOTE | 2018-10-04 04:00 | NUR ---
PATIENT CONTINUES TO NEED SOFT WRIST RESTRAINTS FOR SAFETY TO SELF AND OTHER, NEW ORDER FOR RESTRAINTS STARTED.
[2018-10-04] MEDS: GABAPENTIN 300 MG CAP PO SCH ×3 (04:44→20:25)
[2018-10-04] MEDS: NACL 0.45% 1,000 ML IV SCH ×2 (04:47→12:20)
[2018-10-04] MEDS: MEROPENEM 500 MG in NACL 0.9% 50 ML IV SCH ×3 (05:33→21:04)
[2018-10-04] MEDS: BLOOD GLUCOSE MONITORING 1 DEV DEV FS SCH ×4 (05:54→20:24)
--- NOTE | 2018-10-04 05:56 | NUR ---
PATIENT REFUSED SCHEDULED MEDICATIONS, STATED "ILL KILL YOU". WILL CONTINUE WITH SOFT WRIST RESTRAINTS.
[2018-10-04 06:00] LABS: BASOPHILS % (AUTO) 0.9 % (0.0-2.0); EOSINOPHILS # (AUTO) 0.2 K/uL (0-0.4); EOSINOPHILS % (AUTO) 3.5 % (0.0-4.0); HEMATOCRIT 32.5 % (36-48); HEMOGLOBIN 10.7 g/dL (12.0-16.0); LYMPHOCYTES # (AUTO) 1.1 K/uL (2.5-16.5); LYMPHOCYTES % (AUTO) 20.9 % (20.5-51.1); MEAN CORPUSCULAR HEMOGLOBIN 30 pg (27-31); MEAN CORPUSCULAR HGB CONC 33 g/dL (33-37); MEAN CORPUSCULAR VOLUME 90.5 fL (80-94); MONOCYTES # (AUTO) 0.7 K/uL (0.8-1.0); MONOCYTES % (AUTO) 13.9 % (1.7-9.3); NEUTROPHILS # (AUTO) 3.1 K/uL (1.8-7.7); NEUTROPHILS % (AUTO) 60.8 % (42.2-75.2); PLATELET COUNT (AUTO) 166 K/uL (140-450); RED BLOOD CELL COUNT(AUTO) 3.59 MIL/uL (4.20-5.40); RED CELL DISTRIBUTION WIDTH 13.5 % (11.6-13.7); WHITE BLOOD COUNT (AUTO) 5.1 K/uL (4.8-10.8)
[2018-10-04 06:39] LABS: ANION GAP 13.9 (8-16); CARBON DIOXIDE 24.5 mmol/L (21-32); CHLORIDE 108 mmol/L (98-107); CREATININE 0.7 mg/dL (0.6-1.3); GLUCOSE 178 mg/dL (74-106); POTASSIUM 3.4 mmol/L (3.5-5.1); SODIUM SERUM 143 mmol/L (136-145); UREA NITROGEN, BLOOD 5 mg/dL (7-18)
[2018-10-04 06:42] LABS: MAGNESIUM 1.9 mg/dL (1.8-2.4); PHOSPHORUS 2.7 mg/dL (2.5-4.9)
--- NOTE | 2018-10-04 07:27 | NUR ---
ENDORSED PATIENT TO DAY SHIFT NURSE PATIENT STABLE.
--- NOTE | 2018-10-04 07:38 | NUR ---
RECEIVED BEDSIDE REPORT FROM ASA DELGADO. PT WAS RESTING QUIETLY IN BED. PATIENT ON RESTRAINTS, NOTED TO BE COMBATIVE, ON RA, IV IN RIGHT FA INFUSING 1/2 NS AT 20 ML/HR. PT. REFUSING VITAL SIGNS, AND REFUSING SCHEDULED MEDICATIONS, CALL LIGHT WITHIN REACH, WILL CONTINUE TO MONITOR AND ROUND FREQUENTLY.
--- NOTE | 2018-10-04 08:36 | NUR ---
HELD PT'S SCHEDULED MEDS FOR COLONOSCOPY. WILL GIVE MEDS WHEN PT RETURNS TO UNIT AFTER PROCEDURE.
[2018-10-04] MEDS: DIVALPROEX SPRINKLES 125 MG CAPDR PO SCH ×3 (09:00→17:00)
[2018-10-04] MEDS: POLYETHYLENE GLYCOL 17 GM/PKT PO SCH (09:00)
[2018-10-04] MEDS: SENNA 8.6 MG TAB PO SCH (09:00)
[2018-10-04] MEDS: QUEtiapine FUMARATE 25 MG TAB PO SCH ×2 (09:00→20:25)
[2018-10-04] MEDS: DILTIAZEM 60 MG TAB PO SCH (09:00)
[2018-10-04] MEDS: LACTULOSE 20 GM/30 ML UDC PO SCH (09:00)
[2018-10-04] MEDS: LACTOBACILLUS RHAMNOSUS GG 1 EACH CAP PO SCH (09:00)
[2018-10-04] MEDS: LOSARTAN 50 MG TAB PO SCH (09:00)
[2018-10-04] MEDS: SPIRONOLACTONE 25 MG TAB PO SCH (09:00)
[2018-10-04] MEDS: POTASSIUM CHLORIDE 20% 40 MEQ/15 ML UDC PO SCH (09:00)
[2018-10-04] MEDS: MONTELUKAST SODIUM 10 MG TAB PO SCH (09:00)
[2018-10-04] MEDS: CARVEDILOL 3.125 MG TAB PO SCH ×2 (09:00→20:24)
[2018-10-04] MEDS: BISACODYL 10 MG SUPP RC SCH (09:00)
--- NOTE | 2018-10-04 09:18 | NUR ---
REMOVED PT RESTRAINTS. PT BEHAVIOR IS CALM. NO SIGNS OF DISTRESS OR COMBATIVENESS NOTED AT THIS TIME. WILL CONTINUE TO MONITOR CLOSELY. CALL LIGHT WITHIN REACH. BED IN LOW POSITION.
--- NOTE | 2018-10-04 10:09 | NUR ---
PT RESTING IN BED CALMLY. NO SIGNS OF DISTRESS NOTED. WILL CONTINUE TO ROUND FREQUENTLY. BED IN LOW POSITION. CALL LIGHT WITHIN REACH.
[2018-10-04] MEDS ORDERED: fentaNYL 0.05 MG/ML VIAL ONE (10:53)
[2018-10-04] MEDS ORDERED: MIDAZOLAM 2 MG/2 ML VIAL ONE (10:54)
--- NOTE | 2018-10-04 11:20 | NUR ---
PT TAKEN TO OR FOR COLONOSCOPY. PT IN STABLE CONDITION. NO REPORTS OF PAIN OR DISTRESS NOTED.
--- NOTE | 2018-10-04 12:07 | NUR ---
NOTIFIED RESIDENT DR. SHAFER OF PT RESTRAINT REMOVAL. NOTIFIED THAT PT DOING WELL WITHOUT RESTRAINTS, NO SIGNS OF AGITATION, HITTING, OR BITING NOTED. WILL CONTINUE TO MONITOR PT FOR CHANGES IN BEHAVIOR.
[2018-10-04 12:34] VITALS: BP 119/53
--- NOTE | 2018-10-04 12:34 | NUR ---
PT RETURNED FROM OR. PT IN STABLE CONDITION. SLEEPY FROM OR MEDICATIONS. PT COMPLAINING IF MODERATE 5/10 PAIN. WILL MEDICATE. BED IN LOW POSITION, CALL LIGHT WITHIN REACH.
[2018-10-04] MEDS ORDERED: MIDAZOLAM 2 MG/2 ML VIAL IVP ONE (13:40)
[2018-10-04] MEDS ORDERED: fentaNYL 0.05 MG/ML VIAL IVP ONE (13:40)
--- NOTE | 2018-10-04 14:02 | NUR ---
PT RESTING IN BED CALMLY. NO SIGNS OF DISTRESS NOTED. WILL CONTINUE TO ROUND FREQUENTLY. BED IN LOW POSITION. CALL LIGHT WITHIN REACH.
[2018-10-04] MEDS ORDERED: POTASSIUM CHLORIDE 10 MEQ TABER PO SCH (15:00)
--- NOTE | 2018-10-04 16:14 | NUR ---
PT ASLEEP IN BED. NO SIGNS OF DISTRESS NOTED. WILL CONTINUE TO ROUND FREQUENTLY. BED IN LOW POSITION. CALL LIGHT WITHIN REACH.
--- NOTE | 2018-10-04 17:45 | NUR ---
ENDORSED PATIENT TO CRACKING STILL OPERATOR NURSE FOR CONTINUITY OF CARE. PATIENT IN STABLE CONDITION.
--- NOTE | 2018-10-04 19:30 | NUR ---
RECEIVED BEDSIDE REPORT FROM ASA FAUST, PATIENT IN BED, VERBALLY AGGRESSIVE. BEGAN TO CRY BUT UNABLE TO EXPLAIN WHAT IS WRONG. IV IN RIGHT FA 22 G, INFUSING 1/2 NS AT 20. DRESSING INTACT. EXPLAINED PLAN OF CARE, UPDATED BORED WILL CONTINUE TO MONITOR.
--- NOTE | 2018-10-04 21:30 | NUR ---
PATIENT REFUSED ALL PO MEDICATIONS STATED "NO, STOP". WILL CONTINUE TO MONITOR.
--- NOTE | 2018-10-05 | NUR ---
PATIENT REFUSED V/S CHECK.
--- NOTE | 2018-10-05 01:00 | NUR ---
PATIENT RESTING IN BED COMFORTABLE WATCHING TV.
--- NOTE | 2018-10-05 03:23 | NUR ---
PATIENT SLEEPING IN BED, NO SIGNS OF DISTRESS.
[2018-10-05] MEDS: NACL 0.45% 1,000 ML IV SCH (04:50)
[2018-10-05] MEDS: GABAPENTIN 300 MG CAP PO SCH ×3 (04:50→20:42)
[2018-10-05] MEDS: MEROPENEM 500 MG in NACL 0.9% 50 ML IV SCH ×3 (05:14→20:47)
[2018-10-05] MEDS: BLOOD GLUCOSE MONITORING 1 DEV DEV FS SCH ×4 (05:47→20:42)
--- NOTE | 2018-10-05 07:28 | NUR ---
ENDORSED PATIENT TO DAY SHIFT NURSE, PATIENT STABLE.
--- NOTE | 2018-10-05 07:30 | NUR ---
RECEIVED PT AAOX2, TO NAME AND ONLY, WITH PERIODS OF CONFUSION. PT IS CALM AT THIS TIME. NO SOB NOTED. NO C/O PAIN AT THIS TIME. IV TO RT FOREARM PATENT AND INTACT. CHEST CLEAR. ABDOMEN SOFT, BOWEL SOUNDS PRESENT. NO EDEMA NOTED. INSTRUCTED PT TO CALL FOR ASSISTANCE, CALL LIGHT WITHIN REACH, VERBALIZED PARTIAL UNDERSTANDING.
--- NOTE | 2018-10-05 08:52 | NUR ---
Motel Front Desk Clerk Note: Late entry for 10/04/18: I faxed inquiry to [facility], fax , phone number . Per Myrtle from [facility], they do not have any female beds available at this time. I told her to please contact our nursing staff if a bed becomes available and provided her with nurses' station number.
[2018-10-05 09:00] VITALS: BP 149/53
[2018-10-05] MEDS: DILTIAZEM 60 MG TAB PO SCH (09:00)
[2018-10-05] MEDS: POLYETHYLENE GLYCOL 17 GM/PKT PO SCH (09:00)
[2018-10-05] MEDS: LACTOBACILLUS RHAMNOSUS GG 1 EACH CAP PO SCH (09:00)
[2018-10-05] MEDS: SPIRONOLACTONE 25 MG TAB PO SCH (09:00)
[2018-10-05] MEDS: POTASSIUM CHLORIDE 20% 40 MEQ/15 ML UDC PO SCH (09:00)
[2018-10-05] MEDS: BISACODYL 10 MG SUPP RC SCH (09:00)
[2018-10-05] MEDS ORDERED: LACTULOSE 20 GM/30 ML UDC PO SCH (09:00)
[2018-10-05] MEDS: SENNA 8.6 MG TAB PO SCH (09:00)
[2018-10-05] MEDS: CARVEDILOL 3.125 MG TAB PO SCH ×2 (09:00→20:43)
[2018-10-05] MEDS: LOSARTAN 50 MG TAB PO SCH (09:00)
[2018-10-05] MEDS: DIVALPROEX SPRINKLES 125 MG CAPDR PO SCH ×3 (09:00→17:00)
[2018-10-05] MEDS: MONTELUKAST SODIUM 10 MG TAB PO SCH (09:00)
--- NOTE | 2018-10-05 10:04 | NUR ---
Head Inspector And Center Marker Note: Per Sarah from [facility] , they need 51/50 hold to be fax in order for [facility] to fax inquiries to hospitals with psychiatric units, Charge Nurse Gregg made aware.
[2018-10-05] MEDS ORDERED: HYDRAGUARD CREAM TP PRN (10:05)
[2018-10-05] MEDS: QUEtiapine FUMARATE 25 MG TAB PO SCH ×2 (10:10→20:42)
--- NOTE | 2018-10-05 10:30 | NUR ---
PT REFUSED MORNING MEDICATIONS EXCEPT SEROQUEL PO. RISKS AND BENEFITS EXPLAINED TO PT, VERBALIZED PARTIAL UNDERSTANDING.
[2018-10-05] MEDS ORDERED: MIDAZOLAM 2 MG/2 ML VIAL ONE (12:06)
[2018-10-05] MEDS ORDERED: fentaNYL 0.05 MG/ML VIAL ONE (12:06)
[2018-10-05] MEDS ORDERED: diphenhydrAMINE 50 MG/ML VIAL ONE (12:06)
--- NOTE | 2018-10-05 12:30 | NUR ---
PT SEEN BY DR. HERMINIO MD NOTIFIED THAT PT HAS BEEN REFUSING MOST OF HER MEDS.
[2018-10-05] MEDS: INSULIN LISPRO SLIDING SCALE 100 UNITS/ML VIAL SUBQ PRN ×2 (12:58→20:44)
[2018-10-05 16:00] VITALS: BP 150/73
--- NOTE | 2018-10-05 17:00 | NUR ---
PT REFUSED INSULIN SLIDING SCALE, STATED SHE DOES NOT NEED IT. RISKS AND BENEFITS EXPLAINED, PT VERBALIZED PARTIAL UNDERSTANDING.
--- NOTE | 2018-10-05 19:21 | NUR ---
PT AWAKE, WATCHING TV. NO SIGNS OF PAIN. NO SOB NOTED. WILL ENDORSE TO NEXT SHIFT NURSE FOR CONTINUITY OF CARE.
--- NOTE | 2018-10-05 19:22 | NUR ---
RECEIVED REPORT FROM DAY SHIFT RN MAGALY FOR CONTINUITY OF CARE. PT IS A/OX2, ON ROOM AIR. PT IS ON BEDREST, AND SKIN IS PINK/WARM/DRY AND INTACT. PT IS ABLE TO MAKE NEEDS KNOWN, AND ABLE TO FOLLOW COMMANDS. LUNGS SOUNDS CLEAR, HR EVEN AND REGULAR. PT HAS 22G IV TO LEFT FOREARM, ASYMPTOMATIC AND INTACT. PT DENIES ANY PAIN AT THIS TIME. VITAL SIGNS STABLE. NO SIGNS OF DISTRESS NOTED. PT POSITIONED FOR COMFORT. BED RAILS UP X2, BED IN LOWEST POSITION. CALL LIGHT WITHIN REACH. WILL CONTINUE TO MONITOR.
--- NOTE | 2018-10-05 20:48 | NUR ---
ADMINISTERED SCHEDULED MEDICATIONS. PT TOLERATED WELL. ALSO ADMINISTERED 6 UNITS OF HUMALOG FOR BLOOD SUGAR 271.
[2018-10-06] VITALS: BP 142/59
--- NOTE | 2018-10-06 | NUR ---
VITAL SIGNS STABLE. NO SIGNS OF DISTRESS NOTED. PT POSITIONED FOR COMFORT. BED RAILS UP X2, BED IN LOWEST POSITION. CALL LIGHT WITHIN REACH, WILL CONTINUE TO MONITOR.
--- NOTE | 2018-10-06 | NUR ---
VITAL SIGNS STABLE. NO SIGNS OF DISTRESS NOTED. PT POSITIONED FOR COMFORT. BED RAILS UP X2, BED IN LOWEST POSITION. WILL CONTINUE TO MONITOR. 1:1 SITTER IN ROOM Addendum: 10/06/18 at 0344 by Deneen Deshpande RN DISREGARD NOTE.
[2018-10-06] MEDS: GABAPENTIN 300 MG CAP PO SCH ×2 (05:43→12:10)
[2018-10-06] MEDS: MEROPENEM 500 MG in NACL 0.9% 50 ML IV SCH ×2 (05:43→12:14)
--- NOTE | 2018-10-06 05:44 | NUR ---
ADMINISTERED SCHEDULED MEDICATIONS, PT TOLERATED WELL.
[2018-10-06] MEDS: BLOOD GLUCOSE MONITORING 1 DEV DEV FS SCH ×2 (06:08→12:18)
[2018-10-06] MEDS: INSULIN LISPRO SLIDING SCALE 100 UNITS/ML VIAL SUBQ PRN ×2 (06:08→12:20)
--- NOTE | 2018-10-06 07:20 | NUR ---
ENDORSED PT TO DAY SHIFT RN ROBERTA FOR CONTINUITY OF CARE. PT IN STABLE CONDITION.
--- NOTE | 2018-10-06 07:28 | NUR ---
RECEIVED BEDSIDE REPORT FROM DRUM DRIER RN. ON CONTACT PRECAUTIONS. PT IS AOX3. NO S/S DISTRESS. CALM AND COOPERATIVE AT THIS TIME. PT STATES SHE "FEELS WELL". DENIES PAIN AND DISCOMFORT. SKIN INTACT. SCABS ON LLE. PERINEAL REDNESS NOTED. LUNGS CTA. HEART RHYTHM REGULAR. PT IS ABLE TO MAKE NEEDS KNOWN, AND ABLE TO FOLLOW COMMANDS. PER DRUM DRIER RN, PT IS BEDBOUND AND INCONTINENT. IV SITE IS ASYMPTOMATIC AND INTACT. ALL SAFETY PRECAUTIONS IN PLACE, WILL CONTINUE TO MONITOR.
[2018-10-06 08:00] VITALS: BP 127/50
[2018-10-06] MEDS: POLYETHYLENE GLYCOL 17 GM/PKT PO SCH (09:00)
[2018-10-06] MEDS: SENNA 8.6 MG TAB PO SCH (09:00)
[2018-10-06] MEDS: LOSARTAN 50 MG TAB PO SCH (09:00)
[2018-10-06] MEDS: LACTOBACILLUS RHAMNOSUS GG 1 EACH CAP PO SCH (09:35)
[2018-10-06] MEDS: DILTIAZEM 60 MG TAB PO SCH (09:35)
[2018-10-06] MEDS: DIVALPROEX SPRINKLES 125 MG CAPDR PO SCH ×2 (09:36→12:11)
[2018-10-06] MEDS: MONTELUKAST SODIUM 10 MG TAB PO SCH (09:36)
[2018-10-06] MEDS: QUEtiapine FUMARATE 25 MG TAB PO SCH (09:36)
[2018-10-06] MEDS: CARVEDILOL 3.125 MG TAB PO SCH (09:36)
[2018-10-06] MEDS: POTASSIUM CHLORIDE 20% 40 MEQ/15 ML UDC PO SCH (09:37)
[2018-10-06] MEDS: SPIRONOLACTONE 25 MG TAB PO SCH (09:37)
--- NOTE | 2018-10-06 10:24 | NUR ---
PATIENT REPORTING THAT SHE URINATED IN BED AND SHEETS ARE WET. CHANGED BED WITH ASSOCIATE SALES REPRESENTATIVE AND APPLIED HYDRAGUARD TO PERINEAL REDNESS. PT IS CALM AND COOPERATIVE.
--- NOTE | 2018-10-06 11:44 | NUR ---
J2EE DEVELOPER FROM [facility] HERE TO EVALUATE PATIENT.
--- NOTE | 2018-10-06 13:00 | NUR ---
PT SITTING UP IN BED. NO COMPLAINTS OF PAIN OR DISCOMFORT. CALM AND COOPERATIVE. WILL CONTINUE TO MONITOR.
--- NOTE | 2018-10-06 13:19 | NUR ---
Product Responsibility Liaison Note: Per Radha from [facility] , patient may return to room 14b at their facility, accepting physician is , Radha is aware patient is on isolation, catalytic case operator Meliza dela cruz aware.
--- NOTE | 2018-10-06 13:46 | NUR ---
CM NOTE PATIENT HAS SECONDARY IEHP. PER IEHP MARLEN SHAH, [id number]. PER [facility] OF [place] PH# [phone], PATIENT WILL BE PICKED UP AT 4:45PM TODAY GOING TO [facility]. CHARGE NURSE HARITHA XIAO.
[2018-10-06] MEDS ORDERED: QUET25TA46 PO (13:52)
--- NOTE | 2018-10-06 14:37 | NUR ---
NOTIFIED SISTER IN LAW [phone] THAT PT WILL BE TRANSFERRED BACK TO [facility] AT 1645 TODAY. SISTER IN LAW VERBALIZED COMPLETE UNDERSTANDING.
--- NOTE | 2018-10-06 16:12 | NUR ---
REPORT GIVEN TO ADAM BRAY AT [facility]. DISCUSSED PT DX, CODE STATUS, CONTACT PRECAUTIONS, ALLERGIES, SKIN CONDITION, MEDICATIONS WITH ADAM BRAY. PT TO FOLLOW UP WITH DR. OLIVAREZ AT [facility]. INFORMED ADAM BRAY OF RECENT VITALS AND LABS. ADAM BRAY VERBALIZED COMPLETE UNDERSTANDING OF POC.
--- NOTE | 2018-10-06 16:52 | NUR ---
DISCHARGE PAPERWORK GIVEN TO PT. PT WILL FOLLOW UP WITH DR. OLIVAREZ AT [facility]. NEW MED TEACHING AND MED RECONCILIATION TEACHING GIVEN. PT VERBALIZE COMPLETE UNDERSTANDING BUT FURTHER REINFORCEMENT IS NEEDED DUE TO HX: DEMENTIA. IV SITE REMOVED WITH MINIMAL BLOOD LOSS AND LUMEN COMPLETELY INTACT. ID BANDS REMOVED. PT IN STABLE CONDITION. CALM AND COOPERATIVE.
--- NOTE | 2018-10-06 17:05 | NUR ---
[facility] HAS PICKED UP PATIENT.
== END 2018-10-06 17:05 | DRG 689 ==
LOC: MED 20:30 → MTU 23:44
PROVIDERS: ADMIT Family Medicine; ATTEND Family Medicine
PROC: 0DJD8ZZ Inspection of Lower Intestinal Tract, Via Natural or Artificial Opening Endoscopic (ICD-10-PCS; principal; 2018-10-04 11:00)
DX: N39.0 Urinary tract infection, site not specified (principal); G93.41 Metabolic encephalopathy; F23 Brief psychotic disorder; F02.81 Dementia in other diseases classified elsewhere, unspecified severity, with behavioral disturbance; I48.0 Paroxysmal atrial fibrillation; E11.65 Type 2 diabetes mellitus with hyperglycemia; E11.42 Type 2 diabetes mellitus with diabetic polyneuropathy; E83.42 Hypomagnesemia; E11.22 Type 2 diabetes mellitus with diabetic chronic kidney disease; N18.3 Chronic kidney disease, stage 3 (moderate); G30.9 Alzheimer's disease, unspecified; K21.9 Gastro-esophageal reflux disease without esophagitis; I12.9 Hypertensive chronic kidney disease with stage 1 through stage 4 chronic kidney disease, or unspecified chronic kidney disease; F29 Unspecified psychosis not due to a substance or known physiological condition; K56.41 Fecal impaction; B96.20 Unspecified Escherichia coli [E. coli] as the cause of diseases classified elsewhere; E03.9 Hypothyroidism, unspecified; Z16.12 Extended spectrum beta lactamase (ESBL) resistance; E87.6 Hypokalemia; K52.89 Other specified noninfective gastroenteritis and colitis; I25.10 Atherosclerotic heart disease of native coronary artery without angina pectoris; Z88.6 Allergy status to analgesic agent; Z88.1 Allergy status to other antibiotic agents; Z91.040 Latex allergy status; Z88.0 Allergy status to penicillin; Z91.048 Other nonmedicinal substance allergy status; Z88.2 Allergy status to sulfonamides; Z79.1 Long term (current) use of non-steroidal anti-inflammatories (NSAID); Z79.4 Long term (current) use of insulin; Z79.899 Other long term (current) drug therapy; Z86.73 Personal history of transient ischemic attack (TIA), and cerebral infarction without residual deficits; Z91.19 Patient's noncompliance with other medical treatment and regimen
CPT/HCPCS: 36415; 71045; 74018; 74021; 80048; 80053; 81001; 82550; 82553; 82948; 83605; 83735; 83874; 83880; 84100; 84443; 84484; 85025; 85610; 85730; 87040; 87081; 87086; 87186; 93005; 96365; 96372; 99285; J1200; J1630; J1815; J1956; J2060; J2185; J2250; J2270; J3010; J3486; J3490; J7030; Q0092

== ENCOUNTER 2019-11-14 12:50 | Inpatient (IN) | payer OTHER ==
[~2019-11-14] VITALS: Ht 172.7 cm; Wt 90.7 kg
[~2019-11-14 12:50] MED LIST changes: +ACET-5629 PO; -ASPI-1093 PO; +ATOR40TA PO; +ATRN INH; -CARV3.12 PO; +CYAN100T65 PO; -CYAN1TAB9 PO; -DILT60TA55 PO; +DIVA125E1; +FOLI0.8T PO; -INSU100S45 SUBQ; +INSU100V6 SQ; -LANS30EC3 PO; +MIRABULK PO; +MONT10TA35 PO; +NITR100C7 PO; +PANT40EC PO; +POTA10TE30 PO; +QUET25TA PO; +SENN-72 PO; -SIMV40TA1 PO; -SPIR25TA PO; -TAP5 PO; -VENL150C1 PO
--- NOTE | 2019-11-14 12:50 | NUR ---
PT BIBA BLS TO ER BED 03
[2019-11-14 12:55] VITALS: BP 114/69
[2019-11-14] MEDS ORDERED: NACL 0.9% 1,000 ML IV ONE (13:08)
[2019-11-14] MEDS ORDERED: NACL 0.9% 500 ML IV SCH (13:08)
[2019-11-14] MEDS ORDERED: coreg PO (13:12)
--- NOTE | 2019-11-14 13:15 | NUR ---
BLOOD SUGAR PERFROMED, 76
--- NOTE | 2019-11-14 13:17 | NUR ---
84 Y/O BIB AMBULANCE FROM [facility] WITH C/O URINARY FREQUENCY, BURNING, LEFT LOWER ABDOMINAL PAIN. PT STATES SHE HAS HAD THIS PAIN FOR 3 MONTHS 05/10. PT DENIES N/V/FEVER. PT VS STABLE, ON MONITOR. POSTIONED FOR COMFORT, SIDE RAIL X2 IN PLACE.
--- NOTE | 2019-11-14 13:50 | NUR ---
X-RAY AT BEDSIDE.
--- NOTE | 2019-11-14 13:52 | NUR ---
PT TO CT FOR SCAN BY [facility].
[2019-11-14] MEDS ORDERED: LACTULOSE 20 GM/30 ML UDC PO ONE (15:20)
[2019-11-14] MEDS ORDERED: BISACODYL 10 MG SUPP RC ONE ×2 (15:20→21:09)
[2019-11-14] MEDS ORDERED: SODIUM PHOSPHATE 118 ML ENEM RC ONE (15:20)
[2019-11-14 15:27] LABS: BASOPHILS # (AUTO) 0.1 K/uL (0.00-0.22); BASOPHILS % (AUTO) 0.8 % (0.0-2.0); EOSINOPHILS # (AUTO) 0.2 K/uL (0-0.4); EOSINOPHILS % (AUTO) 2.3 % (0.0-4.0); HEMATOCRIT 39.9 % (36-48); HEMOGLOBIN 13.4 g/dL (12.0-16.0); LYMPHOCYTES # (AUTO) 2.1 K/uL (2.5-16.5); LYMPHOCYTES % (AUTO) 29.8 % (20.5-51.1); MEAN CORPUSCULAR HEMOGLOBIN 30 pg (27-31); MEAN CORPUSCULAR HGB CONC 34 g/dL (33-37); MEAN CORPUSCULAR VOLUME 90.5 fL (80-94); MONOCYTES # (AUTO) 0.9 K/uL (0.8-1.0); MONOCYTES % (AUTO) 12.1 % (1.7-9.3); NEUTROPHILS # (AUTO) 3.9 K/uL (1.8-7.7); PLATELET COUNT (AUTO) 147 K/uL (140-450); RED BLOOD CELL COUNT(AUTO) 4.41 MIL/uL (4.20-5.40)
--- NOTE | 2019-11-14 15:39 | NUR ---
EMT AT BEDSIDE PERFORMING EKG
[2019-11-14 16:05] LABS: ALBUMIN 2.7 g/dL (3.4-5.0); AMYLASE 17 U/L (25-115); ANION GAP 9.9 (8-16); ASPARTATE AMINOTRANSFERASE 12 U/L (15-37); CARBON DIOXIDE 32.7 mmol/L (21-32); CHLORIDE 105 mmol/L (98-107); CREATININE 0.9 mg/dL (0.6-1.3); GLUCOSE 70 mg/dL (74-106); LIPASE 46 U/L (73-393); POTASSIUM 3.6 mmol/L (3.5-5.1); SODIUM SERUM 144 mmol/L (136-145); TOTAL BILIRUBIN 0.4 mg/dL (0.0-1.0); UREA NITROGEN, BLOOD 16 mg/dL (7-18)
[2019-11-14] MEDS ORDERED: HYDROcodone/APAP 7.5/325 MG 1 TAB PO PRN (16:10)
[2019-11-14] MEDS ORDERED: ONDANSETRON 4 MG/2 ML VIAL IM/IVP PRN (16:10)
[2019-11-14] MEDS ORDERED: ACETAMINOPHEN 325 MG TAB PO PRN (16:10)
[2019-11-14] MEDS ORDERED: MORPHINE SULFATE 2 MG/ML SYR IVP PRN (16:10)
[2019-11-14] MEDS ORDERED: INSULIN LISPRO SLIDING SCALE 100 UNITS/ML VIAL SUBQ PRN (17:45)
[2019-11-14] MEDS ORDERED: DEXTROSE 50% 50 ML SYR IVP PRN ×2 (17:45)
--- NOTE | 2019-11-14 17:49 | NUR ---
PT BS 64, GAVE JUICE, CRACKERS AND JELLO. ORDERED PT DINNER TRAY, WILL BE TRANSFERED TO THE FLOOR FOR ADMITING.
[2019-11-14 18:04] LABS: CHOL/HDL RATIO 2.6 (1-4.5); FREE T4 (FREE THYROXINE) 1.05 ng/dL (0.76-1.46); HDL CHOLESTEROL 39 mg/dL (40-60); LDL (CALC) 51 mg/dL (60-100); LIPASE 45 U/L (73-393); MAGNESIUM 1.8 mg/dL (1.8-2.4); PHOSPHORUS 2.7 mg/dL (2.5-4.9); THYROID STIMULATING HORMONE 0.48 uIU/mL (0.34-3.74); TRIGLYCERIDES 57 mg/dL (30-150)
--- NOTE | 2019-11-14 19:20 | NUR ---
RECEIVED BEDSIDE REPORT FROM ENGINE TEST CELL TECHNICIAN SIMON. PT IS AWAKE, ALERT AND ORIENTED X4. RESPIRATIONS ARE EQUAL AND UNLABORED ON ROOM AIR. LUNG SOUNDS ARE CLEAR. SKIN IS INTACT. C/C ABD PAIN SECOND TO FECAL RETENTION. PER PT HAS DISIMPACTION YESTERDAY IN FACILITY. BEFORE THAT CANNOT RECALL LBM. DX FECAL RETENTION, SBO. PT DENIES ANY PAIN. BOWEL SOUNDS X4. IV ON R HAND 22G SL AT THIS TIME. PT WITH SARAY LOWER WEAKNESS. CAN MOVE TOES, SENSATION IS INTACT. PT IS ON CONTACT ISO FOR HX MDRO AND ESBL OF URINE. PT IS YOMBA SHOSHONE. VS: 107/51, HR 66, 96%RA, 16, 97.2. POC DISCUSSED WITH PT.ORIENTED PT TO ROOM, STAFF, CALL LIGHT AND VISITING HOURS. MRSA SWAB OBTAINED AND SENT TO LAB. PT IS BEDREST. CALL LIGHT IS WITHIN REACH. WILL CONTINUE TO MONITOR.
--- NOTE | 2019-11-14 19:20 | NUR ---
Patient will be admitted to care of DR ONEAL. Admited to MED SURGE. Will go to [id number]. Belongings list completed. Report to ASA MUSTAFA.
[2019-11-14 19:30] VITALS: BP 107/51
[2019-11-14] MEDS ORDERED: INSULIN LANTUS 100 UNITS/ML 10 ML VIAL SUBQ SCH (21:00)
[2019-11-14] MEDS ORDERED: PROPAFENONE HCL 325 MG PO SCH (21:00)
[2019-11-14] MEDS ORDERED: BLOOD GLUCOSE MONITORING 1 DEV DEV FS SCH (21:00)
[2019-11-14] MEDS: BLOOD GLUCOSE MONITORING 1 DEV DEV FS SCH (21:00)
[2019-11-14] MEDS ORDERED: LACTULOSE 20 GM/30 ML UDC ONE (21:08)
[2019-11-14] MEDS: ATORVASTATIN 20 MG TAB PO SCH (21:23)
[2019-11-14] MEDS: QUEtiapine FUMARATE 100 MG TAB PO SCH (21:23)
[2019-11-14] MEDS: GABAPENTIN 300 MG CAP PO SCH (21:23)
[2019-11-14] MEDS: NACL 0.9% 1,000 ML IV SCH (21:23)
--- NOTE | 2019-11-14 21:23 | NUR ---
VSS. ERNESTINE MEDICATIONS GIVEN PER ORDERS. BLOOD SUGAR 154 COVERAGE NOT GIVEN D/T NPO. ADMINISTERED LACTULOSE,DULCOLAX AND FLEET ENEMA. EDUCATED PT ON REASON AND POSSIBLE S/E. BARNETT CATH 16 FR INSERTED USING STERILE TECHNIQUE. 10CC OF STERILE WATER USED TO INFLATE BALLOON. SECURED TO R THIGH. NOTED 250CC OF CLEAR YELLOW URINE DRAINED. PT TOLERATED WELL. ALL SAFETY MEASURES ARE IN PLACE. CALL LIGHT IS WITHIN REACH.
--- NOTE | 2019-11-14 22:00 | NUR ---
PT IS RESTING COMFORTABLY IN BED WITH EYES CLOSED. CHEST RISE AND FALL NOTED. WILL CONTINUE TO MONITOR
[2019-11-15] VITALS: BP 118/57
--- NOTE | 2019-11-15 | NUR ---
VITAL SIGNS ARE WITHIN NORMAL LIMITS. ALL SAFETY MEASURES ARE IN PLACE. WILL CONTINUE TO MONITOR
[2019-11-15] MEDS: POTASSIUM CHL 20 MEQ/NACL 0.9% 1,000 ML IV SCH ×2 (01:00→10:01)
--- NOTE | 2019-11-15 02:00 | NUR ---
PT IS ASLEEP. CHEST RISE AND FALL NOTED. NO S/S OF DISTRESS. WILL CONTINUE TO MONITOR.
[2019-11-15 03:49] LABS: APPEARANCE,URINE CLOUDY (CLEAR); BILIRUBIN,URINE NEGATIVE (NEGATIVE); BLOOD, URINE 1+ (NEGATIVE); COLOR,URINE YELLOW (YELLOW); LEUKOCYTE ESTERASE ,URINE 3+ (NEGATIVE); NITRITE, URINE NEGATIVE (NEGATIVE); UGLUCOSE NEGATIVE (NEGATIVE)
[2019-11-15 04:04] LABS: RBC,URINE 11-20 (MOD) /HPF (0-5); WBC,URINE TOO MANY TO COUNT /HPF (0-5)
--- NOTE | 2019-11-15 04:30 | NUR ---
PT IS SLEEPING COMFORTABLY IN BED. CHEST RISE AND FALL. NO S/S OF DISTRESS NOTED
[2019-11-15] MEDS: NACL 0.9% 1,000 ML IV SCH (05:03)
[2019-11-15] MEDS: GABAPENTIN 300 MG CAP PO SCH ×3 (05:32→21:24)
[2019-11-15] MEDS: BLOOD GLUCOSE MONITORING 1 DEV DEV FS SCH ×4 (05:36→21:00)
[2019-11-15] MEDS: PANTOPRAZOLE 40 MG TABEC PO SCH (06:34)
--- NOTE | 2019-11-15 06:34 | NUR ---
ADMINISTERED PROTONIX PER ORDERS. PT TOLERATED WELL. ALL SAFETY MEASURES ARE IN PLACE. PT IS STABLE. WILL ENDORSE TO DAY RN.
[2019-11-15 07:13] LABS: BASOPHILS % (AUTO) 1.2 % (0.0-2.0); EOSINOPHILS # (AUTO) 0.2 K/uL (0-0.4); EOSINOPHILS % (AUTO) 4.7 % (0.0-4.0); HEMATOCRIT 38.8 % (36-48); HEMOGLOBIN 12.8 g/dL (12.0-16.0); LYMPHOCYTES # (AUTO) 1.3 K/uL (2.5-16.5); LYMPHOCYTES % (AUTO) 39.4 % (20.5-51.1); MEAN CORPUSCULAR HEMOGLOBIN 30 pg (27-31); MEAN CORPUSCULAR HGB CONC 33 g/dL (33-37); MEAN CORPUSCULAR VOLUME 91.2 fL (80-94); MONOCYTES # (AUTO) 0.4 K/uL (0.8-1.0); MONOCYTES % (AUTO) 11.8 % (1.7-9.3); NEUTROPHILS # (AUTO) 1.5 K/uL (1.8-7.7); NEUTROPHILS % (AUTO) 42.9 % (42.2-75.2); PLATELET COUNT (AUTO) 128 K/uL (140-450); RED BLOOD CELL COUNT(AUTO) 4.26 MIL/uL (4.20-5.40); RED CELL DISTRIBUTION WIDTH 14.3 % (11.6-13.7); WHITE BLOOD COUNT (AUTO) 3.4 K/uL (4.8-10.8)
--- NOTE | 2019-11-15 07:15 | NUR ---
RECEIVED REPORT FROM REGULATORY AFFAIRS MANAGER NURSE. PATIENT SITTING DOWN IN BED WATCHING TV. NO DISTRESS NOTED. DENIES ANY PAIN. AAOX3, CALM, COOPERATIVE, SKIN COLOR APPROPRIATE TO ETHNICITY, WARM TO TOUCH. SKIN INTACT. IV SITE INTACT, PATENT, AND INFUSING IVF PER MD ORDERS. RESPIRATIONS EVEN, UNLABORED, ON ROOM AIR. ABDOMEN SOFT, LARGE BM REPORTED FROM NIGHTSHIFT AFTER ENEMA. REVIEWED PLAN OF CARE WITH PATIENT. PATIENT VERBALIZED UNDERSTANDING. SAFETY MEASURES IN PLACE, CALL LIGHT WITHIN REACH. WILL CONTINUE TO MONITOR.
[2019-11-15 07:18] LABS: ANION GAP 10.5 (8-16); CARBON DIOXIDE 30.1 mmol/L (21-32); CHLORIDE 109 mmol/L (98-107); CREATININE 0.8 mg/dL (0.6-1.3); GLUCOSE 129 mg/dL (74-106); POTASSIUM 3.6 mmol/L (3.5-5.1); SODIUM SERUM 146 mmol/L (136-145); UREA NITROGEN, BLOOD 14 mg/dL (7-18)
[2019-11-15 08:00] VITALS: BP 130/63
[2019-11-15] MEDS ORDERED: SODIUM PHOSPHATE 118 ML ENEM RC SCH (08:25)
--- NOTE | 2019-11-15 08:41 | NUR ---
PATIENT HAS BEEN SCREENED AND CATEGORIZED MODERATE NUTRITION RISK. PATIENT WILL BE SEEN WITHIN 3-5 DAYS OF ADMISSION. 11/17/19 11/19/[address]
[2019-11-15] MEDS: INSULIN LANTUS 100 UNITS/ML 10 ML VIAL SUBQ SCH (09:00)
--- NOTE | 2019-11-15 09:00 | NUR ---
PERFORM SOAP KANWAL ENEMA PER DR. MOON ORDERS. PATIENT HAD BM. WILL CONTINUE TO MONITOR.
[2019-11-15] MEDS: POLYETHYLENE GLYCOL 17 GM/PKT PO SCH (10:05)
[2019-11-15] MEDS: FUROSEMIDE 20 MG TAB PO SCH (10:05)
[2019-11-15] MEDS: SENNA 8.6 MG TAB PO SCH (10:05)
[2019-11-15] MEDS: DOCUSATE SODIUM 100 MG GELCAP PO SCH (10:05)
[2019-11-15] MEDS: QUEtiapine FUMARATE 100 MG TAB PO SCH ×2 (10:06→21:24)
[2019-11-15] MEDS: MONTELUKAST SODIUM 10 MG TAB PO SCH (10:06)
--- NOTE | 2019-11-15 10:11 | NUR ---
PATIENT LYING DOWN IN BED. NO DISTRESS NOTED. DENIES ANY PAIN. SCHEDULED MEDICATIONS DUE GIVEN. WILL CONTINUE TO MONITOR.
[2019-11-15] MEDS: LEVOFLOXACIN 500 MG/D5W PREMIX 100 ML IV SCH (12:59)
--- NOTE | 2019-11-15 12:59 | NUR ---
PATIENT LYING DOWN IN BED SLEEPING, AROUSBLE BV VOICE. NO DISTRESS NOTED. SCHEDULED MEDICATIONS DUE GIVEN. WILL CONTINUE TO MONITOR.
--- NOTE | 2019-11-15 15:00 | NUR ---
PATIENT LYING DOWN IN BED SLEEPING, AROUSABLE BY VOICE. NO DISTRESS NOTED. DENIES ANY PAIN. WILL CONTINUE TO MONITOR.
[2019-11-15 16:00] VITALS: BP 104/45
--- NOTE | 2019-11-15 19:20 | NUR ---
RECEIVED REPORT FROM DAY SHIFT NURSE. PT SLEEPING BUT EASILY AROUSABLE. NO S/S OF PAIN OR SOB. ON ROOM AIR. SKIN INTACT. IV TO RIGHT HAND #22G, NS+KCL 20 MEQ AT 100 ML/HR INFUSING WELL. PT HAS BARNETT CATH, DRAINING LIGHT YELLOW URINE. SAFETY PRECAUTION IN PLACE. CALL LIGHT WITHIN REACH.
--- NOTE | 2019-11-15 19:35 | NUR ---
GAVE REPORT TO PULPER TENDER NURSE FOR CONTINUITY OF CARE. PATIENT IN STABLE CONDITION.
--- NOTE | 2019-11-15 21:15 | NUR ---
DUE MEDS GIVEN. PT TOLERATED WELL.
[2019-11-15] MEDS: PROPAFENONE 325 MG PO SCH (21:24)
[2019-11-15] MEDS: ATORVASTATIN 20 MG TAB PO SCH (21:24)
--- NOTE | 2019-11-16 | NUR ---
PT REFUSED V/S CHECK. PER PT SHE WANTS TO REST. NO S/S OF DISTRESS.
--- NOTE | 2019-11-16 02:45 | NUR ---
PT SLEEPING BUT EASILY AROUSABLE. NO S/S OF RESP DISTRESS. NO S/S OF PAIN OR DISCOMFORT. SAFETY PRECAUTION IN PLACE.
[2019-11-16] MEDS: GABAPENTIN 300 MG CAP PO SCH ×3 (05:12→20:58)
--- NOTE | 2019-11-16 05:40 | NUR ---
PT WAS CLEANSED AND REPOSITIONED. YELLING AND CURSING NURSES.
[2019-11-16] MEDS: QUEtiapine FUMARATE 100 MG TAB PO SCH ×2 (05:46→20:51)
--- NOTE | 2019-11-16 05:56 | NUR ---
PT SCREAMING, YELLING AND CURSING NURSES. SHE DOESN'T KNOW WHAT SHE WANTS. DR. SHAFER ORDER TO GIVE SEROQUEL EARLY. ORDER CARRIED OUT.
[2019-11-16] MEDS: POTASSIUM CHL 20 MEQ/NACL 0.9% 1,000 ML IV SCH ×2 (05:58→16:33)
[2019-11-16] MEDS: BLOOD GLUCOSE MONITORING 1 DEV DEV FS SCH ×4 (06:36→21:06)
[2019-11-16] MEDS: PANTOPRAZOLE 40 MG TABEC PO SCH (06:36)
--- NOTE | 2019-11-16 06:37 | NUR ---
PT LYING IN BED, AWAKE, CALM AT THIS TIME BUT REFUSED TO TAKE MEDS AND BLOOD SUGAR CHECK.TRYING TO EXPLAIN THE RISK AND BENEFITS BUT PT REFUSED TO LISTEN.
--- NOTE | 2019-11-16 07:10 | NUR ---
RECEIVED REPORT FROM NIGHT NURSE. PATIENT IS FULL CODE WITH MANY KNOWN ALLERGIES. PATIENT IS ON CONTACT PRECAUTION FOR HX MDRO TO URINE. SKIN IS INTACT. PATIENT IS CURRENTLY AWAKE AND RESTING IN BED, NO DISTRESS NOTED. PATIENT IS AAOX4, BEDBOUND, ON ROOM AIR. F/C IN PLACE, FULL LIQUID DIET. PATIENT HAS A RIGHT HERRERA 22G. PATIENT HAS HAD MULTIPLE BM SINCE ADMISSION. WILL REVIEW AND CONTINUE WITH PLAN OF CARE FOR THE DAY.
--- NOTE | 2019-11-16 07:33 | NUR ---
ENDORSED PT TO DAY SHIFT NURSE. PT IN STABLE CONDITION.
[2019-11-16 07:50] LABS: EOSINOPHILS # (AUTO) 0.1 K/uL (0-0.4); EOSINOPHILS % (AUTO) 2.6 % (0.0-4.0); HEMATOCRIT 36.2 % (36-48); HEMOGLOBIN 12.2 g/dL (12.0-16.0); LYMPHOCYTES # (AUTO) 1.2 K/uL (2.5-16.5); LYMPHOCYTES % (AUTO) 40.2 % (20.5-51.1); MEAN CORPUSCULAR HEMOGLOBIN 30 pg (27-31); MEAN CORPUSCULAR HGB CONC 34 g/dL (33-37); MEAN CORPUSCULAR VOLUME 90.4 fL (80-94); MONOCYTES # (AUTO) 0.3 K/uL (0.8-1.0); MONOCYTES % (AUTO) 10.4 % (1.7-9.3); NEUTROPHILS # (AUTO) 1.4 K/uL (1.8-7.7); NEUTROPHILS % (AUTO) 45.8 % (42.2-75.2); PLATELET COUNT (AUTO) 130 K/uL (140-450); RED CELL DISTRIBUTION WIDTH 13.9 % (11.6-13.7); WHITE BLOOD COUNT (AUTO) 3.1 K/uL (4.8-10.8)
[2019-11-16 08:00] VITALS: BP 130/43
[2019-11-16] MEDS: DOCUSATE SODIUM 100 MG GELCAP PO SCH (08:16)
[2019-11-16] MEDS: FUROSEMIDE 20 MG TAB PO SCH (08:17)
[2019-11-16] MEDS: SENNA 8.6 MG TAB PO SCH ×2 (08:19→20:50)
[2019-11-16] MEDS: MONTELUKAST SODIUM 10 MG TAB PO SCH (08:20)
[2019-11-16] MEDS: POLYETHYLENE GLYCOL 17 GM/PKT PO SCH ×3 (08:29→21:06)
[2019-11-16] MEDS: PROPAFENONE 325 MG PO SCH ×2 (08:29→20:58)
[2019-11-16] MEDS: INSULIN LANTUS 100 UNITS/ML 10 ML VIAL SUBQ SCH (08:29)
--- NOTE | 2019-11-16 08:30 | NUR ---
ADMINISTERED MORNING MEDICATION. PATIENT TOLERATED WELL. PATIENT REFUSED MIRALAX. DID NOT ADMIN MORNING LANTUS D/T PATIENTS REFUSAL OF MORNING BLOOD SUGAR CHECK.
[2019-11-16] MEDS ORDERED: MAGNESIUM CITRATE 300 ML BTL PO SCH (09:00)
[2019-11-16 10:58] LABS: MAGNESIUM 1.8 mg/dL (1.8-2.4); PHOSPHORUS 2.6 mg/dL (2.5-4.9)
[2019-11-16 11:03] LABS: POTASSIUM 4.2 mmol/L (3.5-5.1); SODIUM SERUM 143 mmol/L (136-145)
[2019-11-16 11:04] LABS: CARBON DIOXIDE 24.2 mmol/L (21-32); CHLORIDE 108 mmol/L (98-107); CREATININE 0.9 mg/dL (0.6-1.3); GLUCOSE 115 mg/dL (74-106); UREA NITROGEN, BLOOD 12 mg/dL (7-18)
[2019-11-16] MEDS: INSULIN LISPRO SLIDING SCALE 100 UNITS/ML VIAL SUBQ PRN ×3 (11:30→21:09)
--- NOTE | 2019-11-16 11:42 | NUR ---
ADMINISTERED 2U INSULIN FOR BLOOD SUGAR OF 178. HUNG NEW BAG OF NS WITH K 20 MEQ AT 100ML/HR.
--- NOTE | 2019-11-16 12:19 | NUR ---
Late entry. Confirmed with RN that 0.9 NS IV completed at 1615
[2019-11-16] MEDS: LEVOFLOXACIN 500 MG/D5W PREMIX 100 ML IV SCH (12:36)
--- NOTE | 2019-11-16 12:45 | NUR ---
NEW IV INSERTED TO LEFT HAND 22G.
[2019-11-16] MEDS ORDERED: KETOROLAC 15 MG/ML VIAL IVP SCH (13:30)
--- NOTE | 2019-11-16 13:48 | NUR ---
ADMINISTERED ONE TIME DOSE OF TORADOL FOR PAIN. WILL RE-ASSESS
[2019-11-16 16:00] VITALS: BP 97/41
--- NOTE | 2019-11-16 16:30 | NUR ---
ADMINISTERED 4U INSULIN FOR BLOOD SUGAR OF 250.
[2019-11-16] MEDS ORDERED: MAGNESIUM CITRATE 300 ML BTL PO ONE (19:00)
--- NOTE | 2019-11-16 19:08 | NUR ---
REPORT RECEIVED FROM AM NURSE AT BEDSIDE. PT IN STABLE CONDITION. AAOX2-3. INTRODUCED SELF TO PT. BOARD UPDATED. NO COMPLAINTS OF PAIN. NO SOB. AFEBRILE. PT IS BEDBOUND. PT HAS BARNETT. IV SITE L HAND 22G RUNNING NS+KCL 20MEQ@80ML/HR PATENT AND INTACT. SKIN WARM, DRY, AND INTACT WITH NO OPEN WOUNDS. BED LOCKED IN LOW POSITION. CALL DEJESUS WITHIN REACH. SAFETY PRECAUTION IN PLACE. ALL NEEDS MET AT THIS TIME.
[2019-11-16] MEDS ORDERED: QUEtiapine FUMARATE 100 MG TAB ONE ×2 (20:41→20:43)
[2019-11-16] MEDS ORDERED: MAGNESIUM CITRATE 300 ML BTL ONE (20:47)
[2019-11-16] MEDS: ATORVASTATIN 20 MG TAB PO SCH (20:50)
[2019-11-16] MEDS ORDERED: CRUSHER, PILL MC ONE (20:53)
--- NOTE | 2019-11-16 20:58 | NUR ---
LIPITOR, NEURONTIN, PROPAFENONE, SEROQUEL, MAG CITRATE, SENNA, AND MIRALAX GIVEN PO. HEPARIN GIVEN SUBQ. BS 231. 4 UNITS OF HUMALOG GIVEN. PT TOLERATED WELL.
--- NOTE | 2019-11-16 22:10 | NUR ---
PT SLEEPING COMFORTABLY BUT AROUSABLE. NO S/S OF DISTRESS NOTED. WILL CONTINUE TO MONITOR.
[2019-11-17] VITALS: BP 128/49
--- NOTE | 2019-11-17 | NUR ---
PT SLEEPING COMFORTABLY BUT AROUSABLE. NO S/S OF DISTRESS NOTED. NO COMPLAINTS OF PAIN. NO SOB. AFEBRILE. WILL CONTINUE TO MONITOR.
[2019-11-17] MEDS: POTASSIUM CHL 20 MEQ/NACL 0.9% 1,000 ML IV SCH (01:44)
--- NOTE | 2019-11-17 01:44 | NUR ---
JYOTHI 20MEQ KCL HUNG AND RUNNING.
--- NOTE | 2019-11-17 03:15 | NUR ---
PT SLEEPING COMFORTABLY BUT AROUSABLE. NO S/S OF DISTRESS NOTED. RESPIRATIONS EVEN, UNLABORED, AND WNL. WILL CONTINUE TO MONITOR.
[2019-11-17] MEDS: GABAPENTIN 300 MG CAP PO SCH ×3 (04:35→12:15)
--- NOTE | 2019-11-17 04:35 | NUR ---
NEURONTIN GIVEN PO. PT TOLERATED WELL.
[2019-11-17] MEDS: BLOOD GLUCOSE MONITORING 1 DEV DEV FS SCH ×4 (06:33→20:12)
[2019-11-17] MEDS: PANTOPRAZOLE 40 MG TABEC PO SCH ×2 (06:33→10:23)
--- NOTE | 2019-11-17 06:33 | NUR ---
PROTONIX GIVEN PO. BS 155. 2 UNITS OF HUMALOG GIVEN. PT TOLERATED WELL.
[2019-11-17] MEDS: INSULIN LISPRO SLIDING SCALE 100 UNITS/ML VIAL SUBQ PRN ×2 (06:38→12:23)
[2019-11-17] MEDS: KETOROLAC 15 MG/ML VIAL IVP PRN ×2 (06:41→10:54)
--- NOTE | 2019-11-17 06:41 | NUR ---
TORADOL GIVEN FOR 3/10 BACK PAIN. PT TOLERATED WELL.
--- NOTE | 2019-11-17 06:45 | NUR ---
PT AWAKE AND ALERT WATCHING TV. PT IN STABLE CONDITION.
[2019-11-17 06:50] LABS: BASOPHILS % (AUTO) 1.1 % (0.0-2.0); EOSINOPHILS # (AUTO) 0.1 K/uL (0-0.4); EOSINOPHILS % (AUTO) 3.6 % (0.0-4.0); HEMATOCRIT 37.9 % (36-48); HEMOGLOBIN 12.4 g/dL (12.0-16.0); LYMPHOCYTES # (AUTO) 1.4 K/uL (2.5-16.5); LYMPHOCYTES % (AUTO) 43.6 % (20.5-51.1); MEAN CORPUSCULAR HEMOGLOBIN 30 pg (27-31); MEAN CORPUSCULAR HGB CONC 33 g/dL (33-37); MEAN CORPUSCULAR VOLUME 91.3 fL (80-94); MONOCYTES # (AUTO) 0.4 K/uL (0.8-1.0); NEUTROPHILS # (AUTO) 1.2 K/uL (1.8-7.7); NEUTROPHILS % (AUTO) 38.7 % (42.2-75.2); PLATELET COUNT (AUTO) 126 K/uL (140-450); RED BLOOD CELL COUNT(AUTO) 4.15 MIL/uL (4.20-5.40); RED CELL DISTRIBUTION WIDTH 14.1 % (11.6-13.7); WHITE BLOOD COUNT (AUTO) 3.1 K/uL (4.8-10.8)
[2019-11-17 06:51] LABS: ANION GAP 13.4 (8-16); CARBON DIOXIDE 26.6 mmol/L (21-32); CHLORIDE 110 mmol/L (98-107); CREATININE 0.8 mg/dL (0.6-1.3); GLUCOSE 163 mg/dL (74-106); SODIUM SERUM 146 mmol/L (136-145); UREA NITROGEN, BLOOD 9 mg/dL (7-18)
[2019-11-17 06:56] LABS: MAGNESIUM 2.1 mg/dL (1.8-2.4); PHOSPHORUS 2.1 mg/dL (2.5-4.9)
--- NOTE | 2019-11-17 07:25 | NUR ---
RECEIVED BEDSIDE SHIFT REPORT FROM PRINCIPAL NETWORK ARCHITECT NURSE FOR CONTINUATION OF CARE. IV LINE INTACT IN LEFT HAND 22 GAUGE RUNNING NS 20 MEQ KCL @ 80 ML/HR. PATIENT AAOX2/3. PATIENT VERBALIZED UNDERSTANDING OF HOW TO EFFECTIVELY USE THE CALL LIGHT. PATIENT DENIES PAIN AT THIS TIME. BARNETT CATHETER INTACT, BARNETT BAG HAS YELLOW STRAW LIKE URINE. SKIN INTACT. NON AMBULATORY.
[2019-11-17 08:00] VITALS: BP 122/60
[2019-11-17] MEDS: POTASSIUM CHL 20 MEQ/ 1/2 NS 1,000 ML IV SCH ×2 (09:10→19:51)
[2019-11-17] MEDS ORDERED: BOWEL EVACUANT DRINK 4,000 ML PDS PO SCH (09:30)
[2019-11-17] MEDS ORDERED: MINERAL OIL 135 ML ENEM RC SCH (09:30)
[2019-11-17] MEDS: FUROSEMIDE 20 MG TAB PO SCH (10:23)
[2019-11-17] MEDS: SENNA 8.6 MG TAB PO SCH ×3 (10:25→18:23)
[2019-11-17] MEDS: MONTELUKAST SODIUM 10 MG TAB PO SCH (10:25)
[2019-11-17] MEDS: QUEtiapine FUMARATE 100 MG TAB PO SCH ×2 (10:25→20:14)
[2019-11-17] MEDS: DOCUSATE SODIUM 100 MG GELCAP PO SCH ×2 (10:26→20:13)
[2019-11-17] MEDS: POLYETHYLENE GLYCOL 17 GM/PKT PO SCH ×4 (10:27→20:12)
[2019-11-17] MEDS: PROPAFENONE 325 MG PO SCH ×2 (10:28→20:12)
[2019-11-17] MEDS: POTASSIUM CHLORIDE 20% 40 MEQ/15 ML UDC GT SCH (10:28)
--- NOTE | 2019-11-17 10:30 | NUR ---
MEDICATIONS ADMINISTERED, TOLERATED WELL. PATIENT REPORTS ABDOMINAL PAIN RELATED TO CONSTIPATION/BOWEL OBSTRUCTION. LAXATIVES GIVEN. MD ORDERED MINERAL OIL ENEMA AND GOLYTLEY. BS 262 COVERED WITH 6 UNITS OF HUMALOG INSULIN AND 40 UNITS OF LANTUS INSULIN. WILL CONTINUE TO MONITOR.
[2019-11-17] MEDS: INSULIN LANTUS 100 UNITS/ML 10 ML VIAL SUBQ SCH (10:59)
[2019-11-17] MEDS: LEVOFLOXACIN 500 MG/D5W PREMIX 100 ML IV SCH (12:14)
--- NOTE | 2019-11-17 12:30 | NUR ---
PATIENT IS RESTING IN BED AT THIS TIME, NO SIGNS OF DISTRESS NOTED. CALL LIGHT ON AND WITHIN REACH, BED IN LOW POSITION, SIDE RAILS UP. AAOX3. RESPONDING TO VERBAL COMMANDS. WAS CONSULTED BY SHIRLEY THE PATIENT EXPERIENCE LIASON.
--- NOTE | 2019-11-17 15:00 | NUR ---
ROBERTA IS RESTING IN BED, MEDICATIONS TOLERATED WELL, SHE REPORTS HAVING A BOWEL MOVEMENT. MD ORDERED ENEMA AND GOLYTELY. PATIENT REQUESTS TO BE CLEANED AT THIS TIME. SHE REPORTS HAVING TENDERNESS AND PAIN AT THE ANUS DUE TO HARD COMPACT STOOL. WILL CONTINUE TO MONITOR.
[2019-11-17 16:00] VITALS: BP 125/52
--- NOTE | 2019-11-17 17:00 | NUR ---
ROBERTA HAD 1 LARGE BOWEL MOVEMENT, FORMED STOOL, SHE STATES SHE FEELS "A LOT OF RELIEF", MINERAL ENEMA ADMINISTERED. SHE DENIES PAIN AT THIS TIME AND REPORTS COMFORT AT THIS TIME. BED IN LOW POSITION. CALL LIGHT ON AND WITHIN REACH. WILL CONTINUE TO MONITOR.
[2019-11-17] MEDS: NITROFURANTOIN 100 MG CAP PO SCH ×2 (18:23→18:24)
--- NOTE | 2019-11-17 19:25 | NUR ---
BEDSIDE SHIFT REPORT GIVEN TO ONCOMING RANCH HAND LIVESTOCK NURSE FOR CONTINUATION OF CARE.
--- NOTE | 2019-11-17 19:26 | NUR ---
REPORT RECEIVED FROM AM NURSE AT BEDSIDE. PT IN STABLE CONDITION. AAOX4. INTRODUCED SELF TO PT. BOARD UPDATED. NO COMPLAINTS OF PAIN. NO SOB. AFEBRILE. PT IS BEDBOUND. PT HAS BARNETT. IV SITE R HAND 22G RUNNING NS KCL 20 MEQ@80ML/HR PATENT AND INTACT. SKIN WARM, DRY, AND INTACT WITH NO OPEN WOUNDS. BED LOCKED IN LOW POSITION. CALL DEJESUS WITHIN REACH. SAFETY PRECAUTION IN PLACE. ALL NEEDS MET AT THIS TIME.
--- NOTE | 2019-11-17 20:12 | NUR ---
COLACE, LIPITOR, MIRALAX, PROPAFENONE, AND SEROQUEL GIVEN PO. HEPARIN GIVEN SUBQ. BS 141. NO INSULIN COVERAGE NEEDED.
[2019-11-17] MEDS: ATORVASTATIN 20 MG TAB PO SCH (20:13)
[2019-11-17] MEDS ORDERED: PIPERACILLIN/TAZOBACTAM 3.375 GM in DEXTROSE 5% 50 ML IV SCH (21:00)
--- NOTE | 2019-11-17 22:00 | NUR ---
PT AWAKE AND ALERT WATCHING TV. NO S/S OF DISTRESS NOTED. WILL CONTINUE TO MONITOR.
[2019-11-18] VITALS: BP 123/60
--- NOTE | 2019-11-18 00:15 | NUR ---
PT SLEEPING COMFORTABLY BUT AROUSABLE. NO S/S OF DISTRESS NOTED. WILL CONTINUE TO MONITOR.
--- NOTE | 2019-11-18 02:15 | NUR ---
PT SLEEPING COMFORTABLY BUT AROUSABLE. NO S/S OF DISTRESS NOTED. NO COMPLAINTS OF PAIN. NO SOB. AFEBRILE. WILL CONTINUE TO MONITOR.
[2019-11-18] MEDS: GABAPENTIN 300 MG CAP PO SCH ×3 (04:06→20:33)
--- NOTE | 2019-11-18 04:06 | NUR ---
NEURONTIN GIVEN PO. PT TOLERATED WELL.
[2019-11-18] MEDS: BLOOD GLUCOSE MONITORING 1 DEV DEV FS SCH ×4 (05:45→19:39)
--- NOTE | 2019-11-18 05:45 | NUR ---
BS 120. NO INSULIN COVERAGE NEEDED.
--- NOTE | 2019-11-18 06:45 | NUR ---
PT SLEEPING COMFORTABLY BUT AROUSABLE. PT IN STABLE CONDITION.
--- NOTE | 2019-11-18 07:15 | NUR ---
RECEIVED REPORT FROM NIGHT NURSE. PT IN STABLE CONDITION, EYES CLOSED, AROUSABLE TO SPEECH, AAOX4. NO DISTRESS NOTED, DENIES PAIN AT THIS TIME. RESPIRATIONS EVEN AND UNLABORED ON ROOM AIR. SKIN INTACT. IV IN PLACE LEFT HAND 22G PATENT ASYMPTOMATIC AND INFUSING PER ORDER. BARNETT IN PLACE. BED IN LOW POSITION, SAFETY MEASURES IN PLACE. CALL LIGHT WITHIN REACH. WILL CONTINUE TO MONITOR.
[2019-11-18 08:00] VITALS: BP 159/71
[2019-11-18 08:10] LABS: BASOPHILS % (AUTO) 0.4 % (0.0-2.0); EOSINOPHILS # (AUTO) 0.2 K/uL (0-0.4); EOSINOPHILS % (AUTO) 4.5 % (0.0-4.0); HEMATOCRIT 38.9 % (36-48); HEMOGLOBIN 12.7 g/dL (12.0-16.0); LYMPHOCYTES # (AUTO) 1.4 K/uL (2.5-16.5); LYMPHOCYTES % (AUTO) 33.6 % (20.5-51.1); MEAN CORPUSCULAR HEMOGLOBIN 30 pg (27-31); MEAN CORPUSCULAR HGB CONC 33 g/dL (33-37); MEAN CORPUSCULAR VOLUME 91.6 fL (80-94); MONOCYTES # (AUTO) 0.5 K/uL (0.8-1.0); NEUTROPHILS % (AUTO) 49.5 % (42.2-75.2); PLATELET COUNT (AUTO) 117 K/uL (140-450); RED BLOOD CELL COUNT(AUTO) 4.25 MIL/uL (4.20-5.40)
[2019-11-18 09:28] LABS: ANION GAP 13.4 (8-16); CARBON DIOXIDE 25.9 mmol/L (21-32); CHLORIDE 110 mmol/L (98-107); CREATININE 0.9 mg/dL (0.6-1.3); GLUCOSE 126 mg/dL (74-106); POTASSIUM 4.3 mmol/L (3.5-5.1); SODIUM SERUM 145 mmol/L (136-145); UREA NITROGEN, BLOOD 7 mg/dL (7-18)
[2019-11-18] MEDS: INSULIN LANTUS 100 UNITS/ML 10 ML VIAL SUBQ SCH (09:34)
[2019-11-18] MEDS: POTASSIUM CHL 20 MEQ/ 1/2 NS 1,000 ML IV SCH ×2 (09:39→22:15)
[2019-11-18] MEDS: POTASSIUM CHLORIDE 20% 40 MEQ/15 ML UDC GT SCH (09:42)
[2019-11-18] MEDS: POLYETHYLENE GLYCOL 17 GM/PKT PO SCH ×4 (09:42→20:34)
[2019-11-18] MEDS: NITROFURANTOIN 100 MG CAP PO SCH ×2 (09:42→16:12)
[2019-11-18] MEDS: SENNA 8.6 MG TAB PO SCH ×3 (09:42→16:13)
[2019-11-18] MEDS: PROPAFENONE 325 MG PO SCH ×2 (09:42→20:34)
[2019-11-18] MEDS: DOCUSATE SODIUM 100 MG GELCAP PO SCH ×2 (09:43→20:33)
[2019-11-18] MEDS: FUROSEMIDE 20 MG TAB PO SCH (09:43)
[2019-11-18] MEDS: QUEtiapine FUMARATE 100 MG TAB PO SCH ×2 (09:43→20:32)
[2019-11-18] MEDS: MONTELUKAST SODIUM 10 MG TAB PO SCH (09:43)
--- NOTE | 2019-11-18 09:52 | NUR ---
MEDICATIONS ADMINISTERED PER ORDER. PT TOLERATED WELL. NO DISTRESS NOTED. WILL CONTINUE TO MONITOR.
[2019-11-18] MEDS: INSULIN LISPRO SLIDING SCALE 100 UNITS/ML VIAL SUBQ PRN ×2 (11:21→16:06)
--- NOTE | 2019-11-18 11:25 | NUR ---
BLOOD SUGAR CHECK DONE AT THIS TIME, 190. 2 UNITS OF HUMALOG GIVEN COVERAGE. WILL CONTINUE TO MONITOR.
[2019-11-18 12:49] LABS: MAGNESIUM 2.1 mg/dL (1.8-2.4); PHOSPHORUS 2.6 mg/dL (2.5-4.9)
[2019-11-18] MEDS ORDERED: SODIUM PHOSPHATE 118 ML ENEM RC SCH (13:30)
--- NOTE | 2019-11-18 13:58 | NUR ---
MEDICATIONS ADMINISTERED PER ORDER. PT TOLERATED WELL, NO DISTRESS NOTED. SAFETY MEASURES IN PLACE. CALL LIGHT WITHIN REACH, WILL CONTINUE TO MONITOR.
[2019-11-18] MEDS ORDERED: BOWEL EVACUANT DRINK 4,000 ML PDS PO SCH (14:00)
[2019-11-18] MEDS: KETOROLAC 15 MG/ML VIAL IVP PRN (14:02)
[2019-11-18 16:00] VITALS: BP 122/55
--- NOTE | 2019-11-18 16:09 | NUR ---
BLOOD SUGAR AND VITAL SIGNS CHECKED AT THIS TIME. NO DISTRESS NOTED. PT DENIES PAIN. SAFETY MEASURES IN PLACE. CALL LIGHT WITHIN REACH. WILL CONTINUE TO MONITOR.
--- NOTE | 2019-11-18 16:39 | NUR ---
11/18/2019 RD INITIAL ASSESSMENT COMPLETED PLEASE REFER TO NUTRITION ASSESSMENT UNDER CARE ACTIVITY FOR ESTIMATED NUTRITIONAL NEEDS. RD RECOMMENDATIONS: 1. RECOMMEND CONTINUE FULL LIQUID DIET. 2. RECOMMEND ADVANCE DIET WHEN MEDICALLY CLEARED TO 60G CCHO HIGH FIBER DIET 3. F/U 3-5 DAYS; MODERATE RISK JED BRITO MBA, RD
--- NOTE | 2019-11-18 18:41 | NUR ---
PT IN BED, ASLEEP. NO DISTRESS NOTED. SAFETY MEASURES IN PLACE. CALL LIGHT WITHIN REACH. WILL CONTINUE TO MONITOR.
--- NOTE | 2019-11-18 19:24 | NUR ---
REPORT GIVEN TO NIGHT NURSE FOR CONTINUITY OF CARE.
--- NOTE | 2019-11-18 19:25 | NUR ---
RECEIVED BEDSIDE REPORT FROM DAY RN. PT IN STABLE CONDITION, EYES CLOSED, AROUSABLE TO SPEECH, AAOX4. NO DISTRESS NOTED, DENIES PAIN AT THIS TIME. RESPIRATIONS EVEN AND UNLABORED ON ROOM AIR. SKIN INTACT. IV IN PLACE LEFT HAND 22G PATENT ASYMPTOMATIC AND INFUSING PER ORDER. BARNETT IN PLACE DRAINING YELLOW URINE. BED IN LOW POSITION, SAFETY MEASURES IN PLACE. PT IS ON CONTACT ISOLATION HX MDRO URINE. CALL LIGHT WITHIN REACH. WILL CONTINUE TO MONITOR.
[2019-11-18] MEDS: ATORVASTATIN 20 MG TAB PO SCH (20:33)
--- NOTE | 2019-11-18 20:33 | NUR ---
VSS. ADMINISTERED ERNESTINE MEDICATIONS PER ORDERS. PT TOLERATED WELL. NO S/S OF DISTRESS. ALL SAFETY MEASURES ARE IN PLACE. WILL CONTINUE TO MONITOR.
--- NOTE | 2019-11-18 21:45 | NUR ---
PATIENT WAS CLEANED HAD 1 LARGE LIQUID BM. PT TOLERATED WELL. REPOSITION FOR COMFORT. CALL LIGHT IS WITHIN REACH. WILL CONTINUE TO MONITOR.
--- NOTE | 2019-11-18 22:40 | NUR ---
PATIENT WITH ONE LARGE BM. PT CLEANED AND REPOSITION FOR COMFORT. ALL NEEDS MET AT THIS TIME. WILL CONTINUE TO MONITOR.
[2019-11-19] VITALS: BP 122/64
--- NOTE | 2019-11-19 | NUR ---
VITAL SIGNS ARE WITHIN NORMAL LIMITS. ALL NEEDS MET. WILL CONTINUE TO MONITOR
--- NOTE | 2019-11-19 02:07 | NUR ---
PT IS SLEEPING COMFORTABLY IN BED WITH EYES CLOSED. RESPIRATIONS ARE EQUAL AND UNLABORED. NO S/S OF DISTRESS. CALL LIGHT IS WITHIN REACH.
--- NOTE | 2019-11-19 04:15 | NUR ---
PATIENT IS SLEEPING COMFORTABLY IN BED WITH EYES CLOSED. CHEST RISE AND FALL. CALL LIGHT IS WITHIN REACH.
[2019-11-19] MEDS: GABAPENTIN 300 MG CAP PO SCH (05:21)
[2019-11-19] MEDS: BLOOD GLUCOSE MONITORING 1 DEV DEV FS SCH ×4 (05:21→20:27)
[2019-11-19] MEDS: PANTOPRAZOLE 40 MG TABEC PO SCH (06:39)
--- NOTE | 2019-11-19 07:16 | NUR ---
GAVE BEDSIDE REPORT TO DAY RN. PT ENDORSED IN STABLE CONDITION.
--- NOTE | 2019-11-19 07:17 | NUR ---
RECEIVED PATIENT FROM MERCHANDISE DELIVERER NURSEBRANDI. PATIENT IS SLEEPING AT THIS TIME. NO DISTRESS NOTED. RESPIRATIONS EVEN AND UNLABORED, ON ROOM AIR. VISIBLE CHEST RISE NOTED. ABDOMEN SOFT AND NONTENDER. PATIENT SKIN IS INTACT, WARM AND DRY. IV IN THE LEFT HAND G22 RUNNING 1/2NS WITH 20MEQ K AT 80 ML/HR. IV PATENT AND ITNAC. PATIENT IS INCONTINENT. PATIENT IS BEDBOUND. BED IN LOW POSITION. CALL LIGHT IS WITHIN REACH. WILL CONTINUE TO MONITOR
[2019-11-19 07:30] LABS: BASOPHILS % (AUTO) 1.1 % (0.0-2.0); EOSINOPHILS # (AUTO) 0.2 K/uL (0-0.4); HEMATOCRIT 37.4 % (36-48); HEMOGLOBIN 12.4 g/dL (12.0-16.0); LYMPHOCYTES # (AUTO) 1.2 K/uL (2.5-16.5); LYMPHOCYTES % (AUTO) 38.5 % (20.5-51.1); MEAN CORPUSCULAR HEMOGLOBIN 30 pg (27-31); MEAN CORPUSCULAR HGB CONC 33 g/dL (33-37); MEAN CORPUSCULAR VOLUME 91.2 fL (80-94); MONOCYTES # (AUTO) 0.4 K/uL (0.8-1.0); MONOCYTES % (AUTO) 11.7 % (1.7-9.3); NEUTROPHILS # (AUTO) 1.3 K/uL (1.8-7.7); NEUTROPHILS % (AUTO) 42.7 % (42.2-75.2); PLATELET COUNT (AUTO) 120 K/uL (140-450); RED CELL DISTRIBUTION WIDTH 14.2 % (11.6-13.7); WHITE BLOOD COUNT (AUTO) 3.1 K/uL (4.8-10.8)
[2019-11-19 07:37] LABS: ANION GAP 11.1 (8-16); CHLORIDE 108 mmol/L (98-107); CREATININE 0.9 mg/dL (0.6-1.3); GLUCOSE 108 mg/dL (74-106); POTASSIUM 4.1 mmol/L (3.5-5.1); SODIUM SERUM 144 mmol/L (136-145); UREA NITROGEN, BLOOD 5 mg/dL (7-18)
[2019-11-19 07:54] LABS: MAGNESIUM 1.8 mg/dL (1.8-2.4); PHOSPHORUS 3.2 mg/dL (2.5-4.9)
[2019-11-19 08:00] VITALS: BP 142/62
[2019-11-19] MEDS: POLYETHYLENE GLYCOL 17 GM/PKT PO SCH (08:53)
[2019-11-19] MEDS: FUROSEMIDE 20 MG TAB PO SCH (08:54)
[2019-11-19] MEDS: DOCUSATE SODIUM 100 MG GELCAP PO SCH (08:54)
[2019-11-19] MEDS: NITROFURANTOIN 100 MG CAP PO SCH ×2 (08:55→17:01)
[2019-11-19] MEDS: QUEtiapine FUMARATE 100 MG TAB PO SCH ×2 (08:55→20:28)
[2019-11-19] MEDS: SENNA 8.6 MG TAB PO SCH (08:55)
[2019-11-19] MEDS: MONTELUKAST SODIUM 10 MG TAB PO SCH (08:55)
--- NOTE | 2019-11-19 08:55 | NUR ---
HELD KCl, LANTUS BECAUSE PT BLOOD SUGAR WAS 80, AND HEPARIN. PLATELET IS 120.
--- NOTE | 2019-11-19 08:55 | NUR ---
GIVEN MORNING MEDICATIONS PO. EXPLAINED TO PATIENT INDICATIONS. PATIENT VERBALIZED UNDERSTANDING. BED IN LOW POSITION. CALL LIGHT IS WITHIN REACH. WILL CONTINUE TO MONITOR
[2019-11-19] MEDS: INSULIN LANTUS 100 UNITS/ML 10 ML VIAL SUBQ SCH (08:58)
[2019-11-19] MEDS: POTASSIUM CHLORIDE 20% 40 MEQ/15 ML UDC GT SCH (09:00)
[2019-11-19] MEDS: PROPAFENONE 325 MG PO SCH ×2 (09:11→20:28)
--- NOTE | 2019-11-19 11:27 | NUR ---
BLOOD GLUCOSE CHECK: 194. WILL GIVE INSULIN
[2019-11-19] MEDS ORDERED: ACETAMINOPHEN 325 MG TAB PO PRN (11:50)
[2019-11-19] MEDS: INSULIN LISPRO SLIDING SCALE 100 UNITS/ML VIAL SUBQ PRN ×3 (12:07→20:24)
--- NOTE | 2019-11-19 12:07 | NUR ---
GIVEN 2UNITS OF INSULIN IN THE LEFT INNER ARM FOR BLOOD GLUCOSE 194. EXPLAINED TO PATIENT INSULIN. PATIENT VERBALIZED UNDERSTANDING. BED IN LOW POSITION. CALL LIGHT IS WITHIN REACH. WILL CONTINUE TO MONITOR
[2019-11-19 12:13] VITALS: BP 132/72
--- NOTE | 2019-11-19 12:35 | NUR ---
PATIENT IS EATING DINNER AT THIS TIME. PATIENT C/O OF 3/10 ABDOMINAL PAIN. WILL GIVE PAIN MED.
--- NOTE | 2019-11-19 12:45 | NUR ---
GIVEN TYLENOL FOR ABDOMINAL PAIN OF 10. EXPLAINED TO PATIENT INDICATION. PATIENT VERBALIZED UNDERSTANDING. BED IN LOW POSITION. CALL LIGHT IS WITHIN REACH. WILL REASSESS PAIN
[2019-11-19] MEDS ORDERED: LUBI24SG4 PO (13:08)
[2019-11-19] MEDS ORDERED: LACT10SO1 PO (13:09)
[2019-11-19] MEDS ORDERED: MIRABULK PO (13:10)
[2019-11-19] MEDS ORDERED: ASCO1CAP75 PO (13:37)
[2019-11-19] MEDS ORDERED: NITR100C7 PO (13:37)
[2019-11-19] MEDS: GABAPENTIN 100 MG CAP PO SCH ×2 (13:58→20:28)
--- NOTE | 2019-11-19 13:58 | NUR ---
GIVEN GABAPENTIN PO. EXPLAINED TO PATIENT MED. WILL CONTINUE TO MONITOR
--- NOTE | 2019-11-19 14:06 | NUR ---
DISCONTINUED BARNETT CATHETER. EMPTIED 400 CC OF CLEAR, YELLOW URINE. ASPIRATED 10CC OF WATER FROM BALLOON. CATHETER INTACT. PATIENT TOLERATED WELL.
--- NOTE | 2019-11-19 14:08 | NUR ---
CALLED AILYN AUGUSTE, PER [facility] NURSE, PT'S ROOM 14-B WILL BE AVAILABLE AFTER 3:30 PM TODAY. SET UP TRANSPORTATION THRU [facility], PER NOAH, THEY NEED [facility] FOR TRANSPORT. CALLED GRAHAM DUVAL CM [employer]EL [employer]UGGER TEL# [phone], NO ANSWER, VOICEMAIL MESSAGE LEFT. AWAITING FOR CALL BACK. -RN ASSIGNED MADE AWARE.
--- NOTE | 2019-11-19 14:24 | NUR ---
GAVE REPORT TO GABRIELE FROM [facility].
--- NOTE | 2019-11-19 14:34 | NUR ---
IV DISCONTINUED. MINIMAL BLEEDING. SECURED WITH 2X2 AND TAPE. PATIENT TOLERATED WELL.
--- NOTE | 2019-11-19 15:36 | NUR ---
[facility] CALLED BACK WITH THE AUTH FOR TRANSPORT: [id number]. CALLED [facility], PER NOAH, [facility]ARL[facility]ST ETA WILL AT 11:30 PM TONIGHT. -ASA ASSIGNED MADE AWARE AND WILL INFORM THE FACILITY. [employer] NOTIFIED.
--- NOTE | 2019-11-19 15:46 | NUR ---
GABRIELE FROM [facility] IS AWARE THAT THE PATIENT WILL BE TRANSPORTED AT 11PM [facility].
[2019-11-19 16:00] VITALS: BP 134/79
--- NOTE | 2019-11-19 16:13 | NUR ---
MADE ROUNDS. PATIENT IS AWAKE, WATCHING TV. PATIENT DENIES PAIN. BED IN LOW POSITION. CALL LIGHT IS WITHIN REACH. WILL CONTINUE TO MONITOR
--- NOTE | 2019-11-19 16:27 | NUR ---
DR. CASE IS AWARE THAT PATIENT HAS NO IV ACCESS. CHARGE NURSE ALSO AWARE. PATIENT MEDICATIONS ARE ALL PO.
--- NOTE | 2019-11-19 16:35 | NUR ---
VITAL SIGNS AND BLOOD GLUCOSE CHECK: 274. WILL GIVE INSULIN Addendum: 11/19/19 at 1711 by Princess Janette Dewitt RN GLUCOSE CHECK: 255 NOT 274
--- NOTE | 2019-11-19 17:01 | NUR ---
GIVEN MACROBID PO. EXPLAINED TO PATIENT MED. PATIENT VERBALIZED UNDERSTANDING. WILL CONTINUE TO MONITOR
--- NOTE | 2019-11-19 17:50 | NUR ---
GIVEN 6 UNITS OF INSULIN IN THE RIGHT INNER ARM FOR BLOOD SUGAR 255. EXPLAINED TO PATIENT MED. PATIENT TOLERATED WELL. DINNER IS SERVED
--- NOTE | 2019-11-19 19:06 | NUR ---
PATIENT IS SLEEPING AT THIS TIME. IN STABLE CONDITION. WILL ENDORSE TO MASCARA MOLDER NURSE
--- NOTE | 2019-11-19 19:12 | NUR ---
RECEIVED BEDSIDE REPORT FROM DAY RN. PT IN STABLE CONDITION, EYES CLOSED, AROUSABLE TO SPEECH, AAOX4. NO DISTRESS NOTED, DENIES PAIN AT THIS TIME. RESPIRATIONS EVEN AND UNLABORED ON ROOM AIR. SKIN INTACT. HAS NO IV ACCESSES MD AWARE. BED IN LOW POSITION, SAFETY MEASURES IN PLACE. PT IS ON CONTACT ISOLATION HX MDRO URINE. POC DISCUSSED WITH PT. VERBALIZED UNDERSTANDING. PT TO BE TRANSFERRED BACK TO [facility] AT 2300. ALL DISCHARGE PAPER WORK DONE BY DAY RN. REPORT ALREADY GIVEN TO FACILITY. CALL LIGHT WITHIN REACH. WILL CONTINUE TO MONITOR.
[2019-11-19] MEDS: ATORVASTATIN 20 MG TAB PO SCH (20:28)
--- NOTE | 2019-11-19 20:28 | NUR ---
VSS. ERNESTINE MEDICATIONS GIVEN PER ORDERS. BG 281 INSULIN GIVEN PER SLIDING SCALE. SNACK AT BEDSIDE. PT WAS CLEANED AND REPOSITION FOR COMFORT. CALL LIGHT IS WITHIN REACH. WILL CONTINUE TO MONITOR.
[2019-11-19] MEDS ORDERED: SENNA 8.6 MG TAB PO SCH (21:00)
--- NOTE | 2019-11-19 23:00 | NUR ---
PATIENT WAS CLEANED AND REPOSITION FOR COMFORT. CALLED [facility] THEY STATE THEY WILL BE HERE TO SENIOR [facility] PT IN APPROX 90MIN. ALL SAFETY MEASURES ARE IN PLACE. WILL CONTINUE TO MONITOR.
[2019-11-20] VITALS: BP 114/54
--- NOTE | 2019-11-20 | NUR ---
VITAL SIGNS ARE WITHIN NORMAL LIMITS. ALL NEEDS MET AT THIS TIME. CALL LIGHT IS WITHIN REACH.
--- NOTE | 2019-11-20 01:40 | NUR ---
SAMIR PICKED PT UP. ALL D/C PAPERS WITH PT. ALL BELONGINGS GIVEN. ARM BAND REMOVED. VSS. PT IS AAOX3-4. NO S/S OF DISTRESS. RESPIRATIONS EQUAL AND UNLABORED IN RA. PT LEFT ON GURNEY IN STABLE CONDITION.
[2019-11-20] MEDS ORDERED: LACTULOSE 20 GM/30 ML UDC PO SCH (09:00)
[2019-11-20] MEDS ORDERED: POLYETHYLENE GLYCOL 17 GM/PKT PO SCH (09:00)
== END 2019-11-20 01:40 | DRG 388 ==
LOC: MED 12:50 → MTU 16:09
PROVIDERS: ADMIT Family Medicine; ATTEND Family Medicine
DX: K56.41 Fecal impaction (principal); E43 Unspecified severe protein-calorie malnutrition; N39.0 Urinary tract infection, site not specified; I13.0 Hypertensive heart and chronic kidney disease with heart failure and stage 1 through stage 4 chronic kidney disease, or unspecified chronic kidney disease; E87.0 Hyperosmolality and hypernatremia; E11.65 Type 2 diabetes mellitus with hyperglycemia; F03.90 Unspecified dementia, unspecified severity, without behavioral disturbance, psychotic disturbance, mood disturbance, and anxiety; G89.29 Other chronic pain; E11.22 Type 2 diabetes mellitus with diabetic chronic kidney disease; E03.9 Hypothyroidism, unspecified; F20.9 Schizophrenia, unspecified; K21.9 Gastro-esophageal reflux disease without esophagitis; E78.5 Hyperlipidemia, unspecified; I25.10 Atherosclerotic heart disease of native coronary artery without angina pectoris; I50.9 Heart failure, unspecified; K52.9 Noninfective gastroenteritis and colitis, unspecified; I48.0 Paroxysmal atrial fibrillation; N18.3 Chronic kidney disease, stage 3 (moderate); J44.9 Chronic obstructive pulmonary disease, unspecified; Z66 Do not resuscitate; E11.40 Type 2 diabetes mellitus with diabetic neuropathy, unspecified; D69.6 Thrombocytopenia, unspecified; E83.39 Other disorders of phosphorus metabolism; Z68.30 Body mass index [BMI] 30.0-30.9, adult; Z74.01 Bed confinement status; Z86.73 Personal history of transient ischemic attack (TIA), and cerebral infarction without residual deficits; Z88.0 Allergy status to penicillin; Z88.8 Allergy status to other drugs, medicaments and biological substances; Z88.1 Allergy status to other antibiotic agents; Z91.040 Latex allergy status; Z79.4 Long term (current) use of insulin; Z79.899 Other long term (current) drug therapy; Z90.710 Acquired absence of both cervix and uterus; Z82.3 Family history of stroke
CPT/HCPCS: 36415; 36600; 71045; 74018; 80048; 80053; 81001; 82150; 82550; 82803; 82948; 83036; 83605; 83690; 83735; 83880; 84100; 84439; 84443; 84484; 85025; 85610; 85730; 87040; 87081; 87086; 87186; 93005; 96360; 99285; G0482; J1644; J1815; J1885; J1956; J3480; J7030; Q0092